=== PATIENT | female | born 1960 | race Caucasian/White ===

== ENCOUNTER → 2017-09-21 | Outpatient (CLI) | payer OTHER ==
--- NOTE | 2017-09-22 09:22 | KCIC ---
DATE: 09/21/2017 EXAM: MAMMO RANDY SCREENING BILATERAL HISTORY: Routine screening COMPARISON: 11/10/2015 This study was interpreted with the benefit of Computerized Aided Detection (CAD). The breast parenchyma is heterogeneously dense, which could reduce sensitivity of mammography. Breast parenchyma level C. FINDINGS: 2-D and 3-D tomosynthesis imaging was performed in CC and MLO projections. The fibroglandular tissues are quite heterogeneous. No new or enlarging breast densities are seen. There are numerous microcalcifications in both breasts. The most prominent grouping lies in the lateral aspect of the right breast. These calcifications have become more coarse. The overall pattern of microcalcification both breasts suggests a benign etiology. IMPRESSION: Stable mammograms without evidence of malignancy. BI-RADS CATEGORY: 2 BENIGN FINDING(S) RECOMMENDED FOLLOW-UP: 12M 12 MONTH FOLLOW-UP PQRS compliance statement: Patient information was entered into a reminder system with a target due date for the next mammogram. Mammography is a sensitive method for finding small breast cancers, but it does not detect them all and is not a substitute for careful clinical examination. A negative mammogram does not negate a clinically suspicious finding and should not result in delay in biopsying a clinically suspicious abnormality. "Our facility is accredited by the [employer] Mammography [employer]."
== END | disposition home or self-care (01) ==
LOC: KCIC MAMMO 14:48
PROVIDERS: ATTEND Internal Medicine
DX: Z12.31 Encounter for screening mammogram for malignant neoplasm of breast (principal)
CPT/HCPCS: 77063; G0202; 77067

== ENCOUNTER → 2017-11-16 | Outpatient (CLI) | payer OTHER ==
[2017-11-16 07:50] LABS: ADD MAN DIFF? NO
[2017-11-16 07:55] LABS: BASO # 0.1 x10^3/uL (0.0-0.2); BASO % 1 % (0-3); EOS # 0.1 x10^3/uL (0.0-0.7); EOS % 1 % (0-3); HEMOGLOBIN 12.9 g/dL (12.0-15.5); LYMPH % 32 % (24-48); MEAN CORPUSCULAR HEMOGLOBIN 31 pg (25-35); MEAN CORPUSCULAR HGB CONC 33 g/dL (31-37); MEAN CORPUSCULAR VOLUME 93 fL (79-100); MONO # 0.5 x10^3/uL (0.0-1.1); MONO % 5 % (0-9); NEUT # 5.7 x10^3uL (1.8-7.7); NEUT % 61 % (31-73); PLATELET COUNT 334 x10^3/uL (140-400); RED CELL DISTRIBUTION WIDTH 12.4 % (11.5-14.5); WHITE BLOOD COUNT 9.4 x10^3/uL (4.0-11.0)
[2017-11-16 08:22] LABS: THYROID STIM HORMONE (TSH) 3.927 uIU/mL (0.358-3.74)
[2017-11-16 09:29] LABS: ALBUMIN 3.6 g/dL (3.4-5.0); ALBUMIN/GLOBULIN RATIO 0.9 (1.0-1.7); ALK PHOS 55 U/L (46-116); ALT (SGPT) 34 U/L (14-59); ANION GAP 10 (6-14); AST (SGOT) 24 U/L (15-37); BLOOD UREA NITROGEN 28 mg/dL (7-20); BUN/CREATININE RATIO 28 (6-20); CALCIUM 8.9 mg/dL (8.5-10.1); CARBON DIOXIDE 27 mmol/L (21-32); CHLORIDE 101 mmol/L (98-107); CHOLESTEROL 219 mg/dL (0-200); FERRITIN 105 ng/mL (8-252); GFR 57.1; GLUCOSE 147 mg/dL (70-99); HDLC 57 mg/dL (40-60); LDLC 130 mg/dL (0-100); MAGNESIUM 2.1 mg/dL (1.8-2.4); NON-HDL CHOLESTEROL 162 mg/dL (0-129); POTASSIUM 4.3 mmol/L (3.5-5.1); SODIUM 138 mmol/L (136-145); TOTAL BILIRUBIN 0.3 mg/dL (0.2-1.0); TOTAL PROTEIN 7.5 g/dL (6.4-8.2); TRIGLYCERIDES 161 mg/dL (0-150); VLDLC 32 mg/dL (0-40)
[2017-11-16 09:33] LABS: CHOLESTEROL/HDL RATIO 3.8
[2017-11-16 22:12] LABS: HEMOGLOBIN A1C 7.9 % (4.8-5.6)
== END | disposition home or self-care (01) ==
LOC: OPS 07:38
DX: I10 Essential (primary) hypertension (principal); E10.8 Type 1 diabetes mellitus with unspecified complications
CPT/HCPCS: 36415; 80053; 80061; 82728; 83036; 83735; 84443; 85025

== ENCOUNTER → 2018-02-23 | Outpatient (CLI) | payer OTHER ==
[2018-02-23 10:10] LABS: THYROID STIM HORMONE (TSH) 1.985 uIU/mL (0.358-3.74)
== END | disposition home or self-care (01) ==
LOC: LAB 08:46
DX: E03.9 Hypothyroidism, unspecified (principal)
CPT/HCPCS: 36415; 84443

== ENCOUNTER → 2018-08-03 | Outpatient (CLI) | payer OTHER ==
--- NOTE | 2018-08-03 18:04 | KCIC ---
PA and lateral chest radiographs 07/26/2018 CLINICAL HISTORY: Chronic cough. PA and lateral digital radiographs of chest were obtained. No previous studies are available for comparison. The cardiac and mediastinal silhouettes are within normal limits in size and configuration. No acute pulmonary infiltrate is seen. No pleural effusion or pneumothorax is noted. Mild degenerative changes are seen involving the thoracic spine. IMPRESSION: No acute abnormality is seen. Electronically signed by: David Russo MD (08/03/2018 6:01 PM) [facility]
== END | disposition home or self-care (01) ==
LOC: KCIC 15:23
PROVIDERS: ATTEND Internal Medicine
DX: R05 Cough (principal); M47.894 Other spondylosis, thoracic region; E55.9 Vitamin D deficiency, unspecified; I10 Essential (primary) hypertension; E78.5 Hyperlipidemia, unspecified; E78.00 Pure hypercholesterolemia, unspecified; E03.9 Hypothyroidism, unspecified
CPT/HCPCS: 71046

== ENCOUNTER → 2018-10-05 | Outpatient (CLI) | payer OTHER ==
--- NOTE | 2018-10-05 17:16 | KCIC ---
Bilateral digital screening mammograms with 3-D tomosynthesis: Reason for examination: Routine screening. Comparison is made to previous studies dated 09/21/2017 and 11/10/2015. Bilateral mammograms in CC and oblique projections were obtained with 2-D imaging and 3-D tomosynthesis imaging on a Siemens Inspiration unit and reviewed on the workstation. Interpretation was made with the benefit of CAD. The skin and nipples show no abnormalities. No abnormal axillary lymph nodes are seen. The breast parenchyma is heterogeneously dense. (Breast density: Category C.) There appears be an area of nodular architectural distortion in the 9:00 B position of the left breast. Further evaluation with ultrasound is recommended. There are no other dominant masses, suspicious calcifications or architectural distortion. Benign calcifications are present. Impression: Nodular architectural distortion at the 9:00 B position of the left breast. Recommend further evaluation with ultrasound. Your patient's mammogram demonstrates that she has dense breast tissue (breast density category C or D), which could hide abnormalities, and if she has other risk factors for breast cancer that have been identified, she might benefit from supplemental screening tests that may be suggested by you as her ordering physician. Dense breast tissue, in and of itself, is a relatively common condition. Therefore, this information is not provided to cause undue concern, but rather to raise your awareness and to promote discussion with your patient regarding the presence of other risk factors, in addition to dense breast tissue. Your patient's mammography results will be sent to her. BI-RAD Category 0: Incomplete. Needs additional imaging evaluation. "Our facility is accredited by the [employer] Mammography Program." This patient's information has been entered into a reminder system for the patient to be notified with the results of her examination and a target date for the next mammogram. Electronically signed by: Angela Mesa MD (10/05/2018 5:12 PM) [id number]
== END | disposition home or self-care (01) ==
LOC: KCIC MAMMO 15:44
PROVIDERS: ATTEND Internal Medicine
DX: Z12.31 Encounter for screening mammogram for malignant neoplasm of breast (principal)
CPT/HCPCS: 77063; 77067

== ENCOUNTER → 2018-10-31 | Outpatient (CLI) | payer OTHER ==
[~2018-10-31] MED LIST: CRAN200C2 PO; DOXY100T PO; ESOM40CA PO; HYDR-2145 PO; INSU100C SQ; INSU100I30 SQ; LEVO75TA5 PO; LOSA1TAB19 PO; MULT1TAB52 PO; NORE-68 PO; OXYC1TAB15 PO; PRAM0.255 PO; SIMV40TA3 PO; SODI473S25 MC; ZOLP5TAB PO
--- NOTE | 2018-11-02 16:09 | PATHOLOGY ---
[facility] Accession Number: [id number] . 01 Material submitted: . LEFT BREAST . 01 Clinical history: . Left breast mass . 02 Diagnosis: Breast tissue, left breast mass needle biopsies: - INVASIVE DUCTAL CARCINOMA, HISTOLOGIC GRADE 1. SEE COMMENT. (JPM:aga; 11/01/2018) QMS/11/02/2018 . 02 Comment: Sections of the left breast mass needle biopsy reveal tubular structures which haphazardly infiltrate a desmoplastic stroma. The tubular structures are lined by epithelial cells showing modest nuclear pleomorphism and no significant mitotic activity. Immunoperoxidase stains for myoepithelial cells are obtained on blocks A1 and A3 and yield the following results: . P63 (A1): Absence of myoepithelial cells within infiltrating tubular structures. Smooth muscle myosin heavy chain (A1): Absence of myoepithelial cells within infiltrating tubular structures. P63 (A3): Absence of myoepithelial cells within infiltrating tubular structures. Smooth muscle myosin heavy chain (A3): Absence of myoepithelial cells within infiltrating tubular structures. . The morphologic and immunophenotypic findings are supportive of the diagnosis of an invasive ductal carcinoma, histologic grade 1. . The case is also examined by Dr. Stewart, who concurs with the diagnosis. Breast prognostic studies will be obtained, the results of which will be reported separately. . (JPM:aga; 11/02/2018) . . Special stains performed: p63 on A1 and A3, and smooth muscle myosin heavy chain on A1 and A3. . 02 Electronically signed: . Ramin Pena MD, Pathologist NPI- [id number] . 01 Gross description: . Received in formalin labeled "Adiel Mayra, left breast," and additionally labeled on the requisition as "9:00, 5 cmfn," are multiple needle cores of yellow-burnham fibrofatty tissue measuring 1.8 x 0.6 x 0.2 cm in aggregate dimensions. The tissue is submitted in its entirety in cassette A1 through A3. The cold ischemic time is 5 minutes. The total formalin fixation time is approximately 12 hours. (TSD; 10/31/2018) TOB/TOB . 02 Pathologist provided ICD-10: C50.912 . 02 CPT . 259035, A07613, [id number] Specimen Comment: A courtesy copy of this report has been sent to Specimen Comment: [phone], . Specimen Comment: Report sent to and Performed at: 01 [facility] [address], [place] [id number] MD Justin Porras MD Phone: [phone] Performed at: 02 [facility] [address] [place], [place] [id number] MD Ramin Pena MD Phone: [phone]
--- NOTE | 2018-11-14 10:20 | RAD ---
Ultrasound-guided left breast biopsy, 10/31/2018: History: Suspicious breast nodule Previous studies demonstrated a suspicious hypoechoic structure at the 9:00 location in the left breast. Under local anesthesia, aseptic conditions and sonographic guidance the [employer] biopsy instrument was passed into this lesion via a medial approach. Multiple 12-gauge vacuum-assisted core samples were obtained. A biopsy marker was then deposited at the biopsy site. The biopsy instrument was then removed and hemostasis obtained. Two-view postprocedural digital mammograms were then performed to document position of the biopsy marker. The patient tolerated the procedure well and left the department in good condition. The subsequent pathology report indicated the presence of invasive ductal carcinoma. This is considered to be concordant finding.
== END | disposition home or self-care (01) ==
LOC: US 10:07
PROVIDERS: ATTEND Internal Medicine
DX: C50.912 Malignant neoplasm of unspecified site of left female breast (principal)
CPT/HCPCS: 19083; 77065; 88305; 88341; 88342; 88361; C1713; 19081; 76942

== ENCOUNTER → 2018-11-07 | Outpatient (CLI) | payer OTHER ==
[2018-11-07 12:31] LABS: BASO % 1 % (0-3); EOS # 0.1 x10^3/uL (0.0-0.7); EOS % 1 % (0-3); HEMATOCRIT 38.3 % (36.0-47.0); LYMPH # 2.5 x10^3/uL (1.0-4.8); LYMPH % 26 % (24-48); MEAN CORPUSCULAR HEMOGLOBIN 31 pg (25-35); MEAN CORPUSCULAR HGB CONC 34 g/dL (31-37); MEAN CORPUSCULAR VOLUME 91 fL (79-100); MONO # 0.4 x10^3/uL (0.0-1.1); MONO % 4 % (0-9); NEUT # 6.6 x10^3uL (1.8-7.7); NEUT % 69 % (31-73); PLATELET COUNT 362 x10^3/uL (140-400); RED BLOOD COUNT 4.19 x10^6/uL (3.50-5.40); RED CELL DISTRIBUTION WIDTH 12.6 % (11.5-14.5); WHITE BLOOD COUNT 9.6 x10^3/uL (4.0-11.0)
[2018-11-07 12:56] LABS: ALBUMIN 3.8 g/dL (3.4-5.0); CALCIUM 9.6 mg/dL (8.5-10.1); CREATININE 1.1 mg/dL (0.6-1.0); POTASSIUM 3.9 mmol/L (3.5-5.1); TOTAL BILIRUBIN 0.3 mg/dL (0.2-1.0); TOTAL PROTEIN 7.6 g/dL (6.4-8.2)
== END | disposition home or self-care (01) ==
LOC: ONC 09:20
PROVIDERS: ATTEND Internal Medicine Hematology & Oncology
DX: C50.812 Malignant neoplasm of overlapping sites of left female breast (principal)
CPT/HCPCS: 36415; 80053; 85025; 86300

== ENCOUNTER 2018-11-21 08:10 | Inpatient (IN) | payer OTHER ==
[~2018-11-21] VITALS: Ht 167.6 cm; Wt 72.0 kg
[~2018-11-21 08:10] MED LIST changes: -DOXY100T PO; +HYDROmorphone 2 MG/ML VIAL IV PRN; +IV RINGERS,LACTATED 1000ML 1,000 ML IV SCH; +LIDOCAINE 1% PF 2 ML VIAL. ID PRN; +MORPHINE SULFATE 4 MG/ML VIAL. IV PRN; +ONDANSETRON PF 4 MG/2 ML VIAL. IV PRN; -OXYC1TAB15 PO; +PROCHLORPERAZINE 10 MG/2 ML VIAL. IV PRN; -SODI473S25 MC; -ZOLP5TAB PO; +fentaNYL PF VIAL 100 MCG/2 ML VIAL IV PRN
[2018-11-21] MEDS ORDERED: ONDANSETRON PF 4 MG/2 ML VIAL. ONE (08:35)
[2018-11-21] MEDS ORDERED: DEXAMETHASONE SOD PHOS 20 MG/5 ML VIAL. ONE (08:35)
[2018-11-21] MEDS ORDERED: MIDAZOLAM HCL/PF 2 MG/2 ML VIAL. ONE (08:35)
[2018-11-21] MEDS ORDERED: LIDOCAINE 2% PF 5 ML VIAL. ONE (08:35)
[2018-11-21] MEDS ORDERED: PROPOFOL 20 ML IV ONE ×2 (08:35→13:05)
[2018-11-21] MEDS ORDERED: fentaNYL PF VIAL 100 MCG/2 ML VIAL ONE (08:36)
[2018-11-21] MEDS ORDERED: LIDOCAINE WITH 8.4% SOD BICARB 3 ML DISP.SYRIN. INJ ONE ×2 (09:00→09:15)
--- NOTE | 2018-11-21 10:02 | RAD ---
Left breast needle localization, 11/21/2018: History: Breast cancer We targeted the breast biopsy marker at the 9:00 location in the medial aspect of the left breast. Under local anesthesia, aseptic conditions and mammographic guidance the Kopan's needle with modified retention wire was passed into this region via a medial approach. The final images show that the breast biopsy marker lies directly anterior to the midportion of the thickened part of the retention wire approximately 4.4 cm deep to the skin surface. The biopsied lesion is centered along the anterior aspect of the biopsy marker. The patient tolerated the procedure well and was sent to surgery in good condition.
[2018-11-21] MEDS ORDERED: BUPIVAC MPF-EPI 0.5%-1:200000 30 ML VIAL. ONE (10:41)
[2018-11-21] MEDS ORDERED: METHYLENE BLUE 1% 10 ML VIAL. ONE (10:41)
--- NOTE | 2018-11-21 11:10 | RAD ---
Radionuclide left breast sentinel node localization, 11/21/2018: HISTORY: Left breast cancer Under aseptic conditions and utilizing ethyl chloride spray for topical anesthesia a total of 0.75 mCi of filtered technetium 99m sulfur colloid mixed with 0.5 cc of 1 percent buffered lidocaine was injected subdermally in the left periareolar region in 4 divided doses. No imaging was performed. The patient was sent to surgery in good condition. Electronically signed by: El Perez MD (11/21/2018 11:06 AM) [facility]
[2018-11-21] MEDS ORDERED: ISOFLURANE 61 TO 120 MINUTES. IH ONE (11:11)
[2018-11-21] MEDS ORDERED: KETOROLAC 30 MG/ML INJ FOR OR. INJ ONE (11:11)
[2018-11-21] MEDS ORDERED: ePHEDrine PF IN SALINE 50 MG/5 ML DISP.SYRIN IV ONE (11:19)
--- NOTE | 2018-11-21 12:11 | RAD ---
Left specimen mammogram #1, 11/21/2018: History: Left breast cancer A digital mammogram of a surgical specimen from the left left breast was obtained. It contains the modified Kopans retention wire. The breast biopsy marker is not evident within the specimen. There are a few faint scattered microcalcifications.
--- NOTE | 2018-11-21 12:44 | RAD ---
Left breast specimen mammogram #2, 11/21/2018: History: Breast cancer The breast biopsy marker is not evident within the specimen.
--- NOTE | 2018-11-21 13:05 | RAD ---
Left specimen mammogram #3, 11/21/2018: A digital mammogram of the surgical specimen does not demonstrate a breast biopsy marker. There is a tiny smooth nodule evident in the specimen at the D/7 level in the specimen contained. Left specimen mammogram #4, 11/21/2018: A digital mammogram of this surgical specimen does not demonstrate a breast biopsy marker.
--- NOTE | 2018-11-21 13:20 | RAD ---
Left breast specimen #5, 11/21/2018: A single digital image of the specimen does not demonstrate a breast biopsy marker in the specimen. A few scattered rounded microcalcifications are present.
--- NOTE | 2018-11-21 13:20 | PDOC ---
BRIEF OPERATIVE NOTE Date: Nov 21, 2018 Pre-Op Diagnosis invasive carcinoma left breast Post-Op Diagnosis same Procedure Performed SLN biopsy times three excision upper inner quadrant, left breast after localization [place] Anesthesia Type: General Blood Loss 25cc IV Fluid 1500cc Specimens Obtained SLN times three left breast mass 10:00 additional breast tissue medially, superiorly and inferiorly Findings negative LNs FADI ROBERTSON MD Nov 21, 2018 13:20
[2018-11-21] MEDS ORDERED: HYDROmorphone 2 MG/ML VIAL IV PRN (13:30)
[2018-11-21] MEDS ORDERED: ONDANSETRON PF 4 MG/2 ML VIAL. IV PRN (13:30)
[2018-11-21] MEDS ORDERED: diphenhydrAMINE HCL 25 MG CAPSULE PO PRN (13:30)
[2018-11-21] MEDS ORDERED: oxyCODONE/APAP 5/325 1 TAB TABLET PO PRN (13:30)
[2018-11-21] MEDS ORDERED: 0.9 % SODIUM CHLORIDE 10 ML DISP.SYRIN. IV PRN (13:30)
[2018-11-21] MEDS ORDERED: INSULIN LISPRO 100 UNIT/ML 3ML VIAL for OP,RR ONLY. SQ ONE (13:45)
--- NOTE | 2018-11-21 14:20 | NUR ---
This patient arrived by bed, freq vitals were initiated, family at bedside, IVF going, call light within reach of patient. Dressing is CDI, and patient is drowsy at this time, this nurse will continue to monitor.
[2018-11-21 15:00] VITALS: BP_SYST 150; BP_DIAS 50; BP_DIAS 52
[2018-11-21 16:00] VITALS: BP 150/48
[2018-11-21 16:30] VITALS: BP 135/49
[2018-11-21] MEDS: INSULIN LISPRO 300 UNITS/3 ML INSULN.PEN. SQ SCH (17:20)
[2018-11-21] MEDS: oxyCODONE/APAP 5/325 1 TAB TABLET PO PRN ×2 (17:27→21:57)
[2018-11-21] MEDS: POTASSIUM CL 20MEQ-0.45% NACL 1,000 ML IV SCH (17:29)
--- NOTE | 2018-11-21 17:30 | NUR ---
This nurse discussed with patient how much SSI the patient would take with current BS, patient stated, "5 units, not 8 units." This nurse will continue to monitor.
--- NOTE | 2018-11-21 17:45 | NUR ---
This nurse paged MD for orders for muscle spasms, orders received. This nurse discussed taking PO pain medications, and using IV for breakthrough only as needed, started with 1 Percocet, and can increase to 2 if needed. Discussed potentially discharging tomorrow if ok with MD. SAMANTHA drain education started, will need more education at discharge if leaving with drain. No output out of drain at this time. Patient able to ambulate to bathroom with SBA, and stated, "my urine is blue." This nurse explained the reasoning behind the coloring of urine.
[2018-11-21] MEDS ORDERED: LORazepam 0.5 MG TABLET PO PRN ×2 (18:00→18:15)
[2018-11-21 19:00] VITALS: BP 129/46
[2018-11-21] MEDS ORDERED: PRAMIPEXOLE 0.25 MG TABLET. PO SCH (21:00)
[2018-11-21] MEDS ORDERED: DEXTROSE 50% 25 GM / 50ML DISP.SYRIN. IV PRN (21:15)
[2018-11-21] MEDS ORDERED: INSULIN LISPRO 300 UNITS/3 ML INSULN.PEN. SQ ONE (21:30)
[2018-11-21] MEDS ORDERED: INSULIN GLARGINE 300 UNITS/3 ML INSULN.PEN. SQ ONE (21:30)
[2018-11-21] MEDS: DOCUSATE SODIUM 100 MG CAPSULE. PO SCH (21:55)
--- NOTE | 2018-11-21 22:00 | NUR ---
Dr. Romero pagecheryle for blood glucose of 355. Orders to consult hospitalist rcvd, Dr. Yoly espinoza, consult placed and insulin orders rcvd, will continue to monitor.
[2018-11-21 23:00] VITALS: BP 129/54
--- NOTE | 2018-11-21 23:00 | NUR ---
Per pt's request only 10 units of humalog administered this evening. Pt resting in bed at this time, call light within reach and will continue to monitor.
[2018-11-22 03:00] VITALS: BP 122/51
[2018-11-22] MEDS: oxyCODONE/APAP 5/325 1 TAB TABLET PO PRN (03:45)
[2018-11-22] MEDS: POTASSIUM CL 20MEQ-0.45% NACL 1,000 ML IV SCH (06:36)
[2018-11-22 07:00] VITALS: BP 133/50
[2018-11-22] MEDS ORDERED: LEVOTHYROXINE 75 MCG TABLET PO SCH (07:30)
[2018-11-22] MEDS ORDERED: PANTOPRAZOLE 40 MG TABLET.DR. PO SCH (07:30)
[2018-11-22] MEDS: DOCUSATE SODIUM 100 MG CAPSULE. PO SCH (08:57)
[2018-11-22] MEDS ORDERED: ENOXAPARIN 40 MG/0.4 ML SYRINGE. SQ SCH (09:00)
[2018-11-22] MEDS ORDERED: NON FORMULARY ITEM (Losartan/Hydrochlorothiazide (Losartan-Hctz 50-12.5 Mg Tab) 1 EACH) PO SCH (09:00)
[2018-11-22] MEDS ORDERED: hydroCHLOROthiazide 25 MG TABLET PO SCH (09:00)
[2018-11-22] MEDS ORDERED: LOSARTAN POTASSIUM 50 MG TABLET. PO SCH (09:00)
[2018-11-22] MEDS ORDERED: INSULIN GLARGINE 300 UNITS/3 ML INSULN.PEN. SQ SCH (09:00)
[2018-11-22] MEDS: INSULIN LISPRO 300 UNITS/3 ML INSULN.PEN. SQ SCH ×4 (09:11→12:40)
--- NOTE | 2018-11-22 09:43 | PDOC1 ---
History and Physical Date of Admission Date of Admission DATE: 11/22/18 TIME: 09:40 Identification/Chief Complaint Chief Complaint here for breast surgery Past Medical History Endocrine: Diabetes Past Surgical History Past Surgical History: No pertinent history Family History Family History: Cancer Family History: Grandparents Social History Smoke: No ALCOHOL: none Drugs: None Current Medications Current Medications Current Medications Ondansetron HCl (Zofran) 4 mg PRN Q6HRS PRN IV NAUSEA/VOMITING; Start 11/21/18 at 07:00; Stop 11/22/18 at 06:59; Status DC Fentanyl Citrate (Fentanyl 2ml Vial) 25 mcg PRN Q5MIN PRN IV MILD PAIN Last administered on 11/21/18at 13:58; Start 11/21/18 at 07:00; Stop 11/22/18 at 06:59 ; Status DC Fentanyl Citrate (Fentanyl 2ml Vial) 50 mcg PRN Q5MIN PRN IV MODERATE TO SEVERE PAIN Last administered on 11/21/18at 14:15; Start 11/21/18 at 07:00; Stop 11/22/18 at 06:59; Status DC Morphine Sulfate (Morphine Sulfate) 1 mg PRN Q10MIN PRN IV SEVERE PAIN; Start 11/21/18 at 07:00; Stop 11/22/18 at 06:59; Status DC Ringer's Solution 1,000 ml @ 30 mls/hr Q24H IV Last administered on 11/21/18at 09:02; Start 11/21/18 at 07:00; Stop 11/21/18 at 18:59; Status DC Lidocaine HCl (Xylocaine-Mpf 1% 2ml Vial) 2 ml PRN 1X PRN ID IV START; Start at 07:00; Stop 11/22/18 at 06:59; Status DC Hydromorphone HCl (Dilaudid) 0.5 mg PRN Q10MIN PRN IV SEV PAIN, Second choice; Start 11/21/18 at 07:00; Stop 11/22/18 at 06:59; Status DC Prochlorperazine Edisylate (Compazine) 5 mg PACU PRN PRN IV NAUSEA, MRX1; Start 11/21/18 at 07:00; Stop 11/22/18 at 06:59; Status DC Cefazolin Sodium/ Dextrose 50 ml @ 100 mls/hr 1X PREOP PRN IV PRIOR TO PROCEDURE Last administered on 11/21/18at 10:55; Start 11/21/18 at 06:00; Stop at 18:00; Status DC Lidocaine/Sodium Bicarbonate (Buffered Lidocaine 1%) 3 ml 1X ONCE INJ Last administered on 11/21/18at 09:43; Start 11/21/18 at 09:00; Stop 11/21/18 at 09:01 ; Status DC Propofol 20 ml @ As Directed STK-MED ONCE IV ; Start 11/21/18 at 08:35; Stop at 08:37; Status DC Lidocaine HCl (Lidocaine Pf 2% Vial) 5 ml STK-MED ONCE .ROUTE ; Start 11/21/18 at 08:35; Stop 11/21/18 at 08:37; Status DC Dexamethasone Sodium Phosphate (Decadron) 20 mg STK-MED ONCE .ROUTE ; Start at 08:35; Stop 11/21/18 at 08:37; Status DC Ondansetron HCl (Zofran) 4 mg STK-MED ONCE .ROUTE ; Start 11/21/18 at 08:35; Stop 11/21/18 at 08:37; Status DC Midazolam HCl (Versed) 2 mg STK-MED ONCE .ROUTE ; Start 11/21/18 at 08:35; Stop 11/21/18 at 08:37; Status DC Fentanyl Citrate (Fentanyl 2ml Vial) 100 mcg STK-MED ONCE .ROUTE ; Start at 08:36; Stop 11/21/18 at 08:38; Status DC Lidocaine/Sodium Bicarbonate (Buffered Lidocaine 1%) 3 ml 1X ONCE INJ Last administered on 11/21/18at 10:23; Start 11/21/18 at 09:15; Stop 11/21/18 at 09:16 ; Status DC Bupivacaine HCl/ Epinephrine Bitart (Sensorcain-Mpf Epi 0.5%-[id number]) 30 ml STK -MED ONCE .ROUTE Last administered on 11/21/18at 11:15; Start 11/21/18 at 10:41 ; Stop 11/21/18 at 10:43; Status DC Methylene Blue (Methylene Blue) 1 ml STK-MED ONCE .ROUTE Last administered on at 11:15; Start 11/21/18 at 10:41; Stop 11/21/18 at 10:43; Status DC Ketorolac Tromethamine (Toradol For Or Only) 30 mg STK-MED ONCE INJ ; Start at 11:11; Stop 11/21/18 at 11:13; Status DC Isoflurane (Isoflurane) 60 ml STK-MED ONCE IH ; Start 11/21/18 at 11:11; Stop at 11:13; Status DC Ephedrine Sulfate (ePHEDrine PF IN SALINE SYRINGE) 50 mg STK-MED ONCE IV ; Start 11/21/18 at 11:19; Stop 11/21/18 at 11:21; Status DC Propofol 20 ml @ As Directed STK-MED ONCE IV ; Start 11/21/18 at 13:05; Stop at 13:07; Status DC Hydrochlorothiazide (Hydrodiuril) 25 mg DAILY PO Last administered on at 08:56; Start 11/22/18 at 09:00 Levothyroxine Sodium (Synthroid) 75 mcg DAILYAC PO Last administered on at 06:35; Start 11/22/18 at 07:30 Pantoprazole Sodium (Protonix) 40 mg DAILYAC PO Last administered on 11/22/18at 06:35; Start 11/22/18 at 07:30 Insulin Glargine (Lantus) 26 units DAILY SQ Last administered on 11/22/18at 09: 09; Start 11/22/18 at 09:00 Insulin Human Lispro (HumaLOG) 8 units TIDWMEALS SQ Last administered on at 09:11; Start 11/21/18 at 17:00 Non-Formulary Medication (Losartan/ Hydrochlorothiazide (Losartan-Hctz 50-12.5 Mg Tab)) 1 each DAILY PO ; Start 11/22/18 at 09:00; Status UNV Pramipexole Dihydrochloride (miraPEX) 0.25 mg QHS PO Last administered on at 21:55; Start 11/21/18 at 21:00 Diphenhydramine HCl (Benadryl) 25 mg PRN Q6HRS PRN PO ITCHING; Start 11/21/18 at 13:30 Enoxaparin Sodium (Lovenox 40mg Syringe) 40 mg Q24H SQ Last administered on at 08:58; Start 11/22/18 at 09:00 Sodium Chloride (Normal Saline Flush) 3 ml QSHIFT PRN IV AFTER MEDS AND BLOOD DRAWS; Start 11/21/18 at 13:30 Potassium Chloride/Sodium Chloride 1,000 ml @ 75 mls/hr [id number] IV Last administered on 11/22/18at 06:36; Start 11/21/18 at 14:30 Oxycodone/ Acetaminophen (Percocet 5/325) 1 tab PRN Q4HRS PRN PO MILD PAIN, 1ST CHOICE Last administered on 11/22/18at 03:45; Start 11/21/18 at 13:30 Oxycodone/ Acetaminophen (Percocet 5/325) 2 tab PRN Q4HRS PRN PO MODERATE PAIN , SEVERE PAIN; Start 11/21/18 at 13:30 Hydromorphone HCl (Dilaudid) 1 mg PRN Q3HRS PRN IV PAIN Last administered on at 14:58; Start 11/21/18 at 13:30 Docusate Sodium (Colace) 100 mg BID PO Last administered on 11/22/18at 08:57; Start 11/21/18 at 21:00 Ondansetron HCl (Zofran) 4 mg PRN Q6HRS PRN IV NAUESA, 1ST CHOICE; Start at 13:30 Insulin Human Lispro (HumaLOG VIAL) 3 unit 1X ONCE SQ Last administered on at 13:41; Start 11/21/18 at 13:45; Stop 11/21/18 at 13:56; Status DC Losartan Potassium (Cozaar) 50 mg DAILY PO Last administered on 11/22/18at 08:57 ; Start 11/22/18 at 09:00 Lorazepam (Ativan) 0.5 mg PRN Q8HRS PRN PO ANXIETY / AGITATION; Start 11/21/18 at 18:00; Stop 11/21/18 at 18:02; Status DC Lorazepam (Ativan) 0.5 mg PRN Q6HRS PRN PO ANXIETY / AGITATION Last administered on 11/21/18at 18:25; Start 11/21/18 at 18:15 Insulin Glargine (Lantus) 20 units 1X ONCE SQ Last administered on 11/21/18at 22:00; Start 11/21/18 at 21:30; Stop 11/21/18 at 21:31; Status DC Insulin Human Lispro (HumaLOG) 15 units 1X ONCE SQ Last administered on at 21:59; Start 11/21/18 at 21:30; Stop 11/21/18 at 21:31; Status DC Insulin Human Lispro (HumaLOG) 0-9 UNITS TIDWMEALS SQ Last administered on 11/22at 09:13; Start 11/22/18 at 08:00 Dextrose (Dextrose 50%-Water Syringe) 12.5 gm PRN Q15MIN PRN IV SEE COMMENTS; Start 11/21/18 at 21:15 Active Scripts Active Reported Microgestin Fe 1.5-30 Tab (Noreth A-Et Estra/Fe Fumarate) 1 Each Tablet 1 Each PO QODAY Multivitamins (Multivitamin) 1 Each Tablet 1 Each PO DAILY Cranberry (Cranberry Extract) 200 Mg Capsule 200 Mg PO DAILY Hydrochlorothiazide Tablet (Hydrochlorothiazide) 25 Mg Tablet 25 Mg PO DAILY Simvastatin 40 Mg Tablet 40 Mg PO HS Humalog (Insulin Lispro) 100 Unit/1 Ml Cartridge 8 Unit SQ TIDAC Levothyroxine Sodium 75 Mcg Tablet 75 Mcg PO DAILYAC Mirapex (Pramipexole Di-Hcl) 0.25 Mg Tablet 0.25 Mg PO HS Tresiba Flextouch U-100 (Insulin Degludec) 100 Unit/1 Ml Insuln.pen 26 Unit SQ AM Losartan-Hctz 50-12.5 Mg Tab (Losartan/Hydrochlorothiazide) 1 Each Tablet 1 Each PO DAILY Nexium Capsule (Esomeprazole Magnesium) 40 Mg Capsule.dr 40 Mg PO DAILYAC Allergies Allergies: Coded Allergies: No Known Drug Allergies (Unverified , 11/19/18) ROS Review of System 14 pt ros otherwise neg General: No: Chills, Night Sweats, Fatigue, Malaise, Appetite, Other PSYCHOLOGICAL ROS: YES: Anxiety; No: Behavioral Disorder, Concentration difficultie, Decreased libido, Depression, Disorientation, Hallucinations, Hostility, Irritablity, Memory difficulties, Mood Swings, Obsessive thoughts, Physical abuse, Sexual abuse, Sleep disturbances, Suicidal ideation, Other Eyes: Yes Blurry vision; No Decreased vision, No Double vision, No Dry eyes, No Excessive tearing, No Eye Pain, No Itchy Eyes, No Loss of vision, No Photophobia, No Scotomata, No Uses contacts, No Uses glasses, No Other HEENT: No: Heacaches, Visual Changes, Hearing change, Nasal congestion, Nasal discharge, Oral lesions, Sinus pain, Sore Throat, Epistaxis, Sneezing, Snoring, Tinnitus, Vertigo, Vocal changes, Other ALLERGY AND IMMUNOLOGY: No: Hives, Insect Bite Sensitivity, Itchy/Watery Eyes, Nasal Congestion, Post Nasal Drip, Seasonal Allergies, Other Hematological and Lymphatic: No: Bleeding Problems, Blood Clots, Blood Transfusions, Brusing, Night Sweats, Pallor, Swollen Lymph Nodes, Other ENDOCRINE: YES: Breast Changes; No: Galactorrhea, Hair Pattern Changes, Hot Flashes, Malaise/lethargy, Mood Swings, Palpitations, Polydipsia/polyuria, Skin Changes, Temperature Intolerance , Unexpected Weight Changes, Other Breast: No New/Changing Breast Lumps, No Nipple changes, No Nipple discharge, No Other Respiratory: No: Cough, Hemoptysis, Orthopnea, Pleuritic Pain, Shortness of breath, SOB with excertion, Sputum Changes, Stridor, Tachypnea, Wheezing, Other Cardiovascular: No Chest Pain, No Palpitations, No Orthopnea, No Paroxysmal Noc. Dyspnea, No Edema, No Lt Headedness, No Other Gastrointestinal: No Nausea, No Vomiting, No Abdominal Pain, No Diarrhea, No Constipation, No Melena, No Hematochezia, No Other Genitourinary: No Dysuria, No Frequency, No Incontinence, No Hematuria, No Retention, No Discharge, No Urgency, No Pain, No Flank Pain, No Other, No , No , No , No , No , No , No Musculoskeletal: No Gait Disturbance, No Joint Pain, No Joint Stiffness, No Joint Swelling, No Muscle Pain, No Muscular Weakness, No Pain In:, No Swelling In:, No Other Neurological: No Behavorial Changes, No Bowel/Bladder ControlChng, No Confusion , No Dizziness, No Gait Disturbance, No Headaches, No Impaired Coord/balance, No Memory Loss, No Numbness/Tingling, No Seizures, No Speech Problems, No Tremors, No Visual Changes, No Weakness, No Other Skin: No Dry Skin, No Eczema, No Hair Changes, No Lumps, No Mole Changes, No Mottling, No Nail Changes, No Pruritus, No Rash, No Skin Lesion Changes, No Other, No Acne Physical Exam General: Alert, Oriented X3, Cooperative, No acute distress HEENT: Atraumatic, PERRLA, EOMI, Mucous membr. moist/pink Lungs: Clear to auscultation, Normal air movement Heart: S1S2, RRR, no thrills, no rubs, no gallops, no murmurs, murmurs Cardiovascular: S1 Breasts: Not examined Abdomen: Normal bowel sounds, Soft, No hepatosplenomegaly Rectal Exam: not examined PELVIC: Examination not indicated Extremities: No clubbing, No cyanosis, No edema Skin: No rashes Neuro: Normal speech, Strength at 5/5 X4 ext, Sensation intact, Cranial nerves 3-12 NL Psych/Mental Status: Mental status NL, Mood NL Vitals Vitals Vital Signs Date Time Temp Pulse Resp B/P (MAP) Pulse Ox O2 Delivery O2 Flow Rate FiO2 11/22/18 08:57 72 133/50 11/22/18 07:00 97.8 16 96 Room Air 97.8 11/21/18 13:15 10 Labs Labs Diagnosis: Breast tissue, left breast mass needle biopsies: - INVASIVE DUCTAL CARCINOMA, HISTOLOGIC GRADE 1. SEE COMMENT. (JPM:aga; 11/01/2018) QMS/11/02/2018 . 02 Comment: Sections of the left breast mass needle biopsy reveal tubular structures which haphazardly infiltrate a desmoplastic stroma. The tubular structures are lined by epithelial cells showing modest nuclear pleomorphism and no significant mitotic activity. Immunoperoxidase stains for myoepithelial cells are obtained on blocks A1 and A3 and yield the following results: . P63 (A1): Absence of myoepithelial cells within infiltrating tubular structures. Smooth muscle myosin heavy chain (A1): Absence of myoepithelial cells within infiltrating tubular structures. P63 (A3): Absence of myoepithelial cells within infiltrating tubular structures. Smooth muscle myosin heavy chain (A3): Absence of myoepithelial cells within infiltrating tubular structures. . The morphologic and immunophenotypic findings are supportive of the diagnosis of an invasive ductal carcinoma, histologic grade 1. . The case is also examined by Dr. Stewart, who concurs with the diagnosis. Breast prognostic studies will be obtained, the results of which will be reported separately. . (JPM:aga; 11/02/2018) . . Special stains performed: p63 on A1 and A3, and smooth muscle myosin heavy chain on A1 and A3. . 02 Electronically signed: . Ramin Pena MD, Pathologist NPI- [id number] Laboratory Tests Test 11/21/18 08:44 11/21/18 13:23 11/21/18 16:50 11/21/18 20:18 Glucose (Fingerstick) 146 mg/dL (70-99) 220 mg/dL (70-99) 243 mg/dL (70-99) 355 mg/dL (70-99) Laboratory Tests Test 11/21/18 13:23 11/21/18 16:50 11/21/18 20:18 Glucose (Fingerstick) 220 mg/dL (70-99) 243 mg/dL (70-99) 355 mg/dL (70-99) VTE Prophylaxis Ordered VTE Prophylaxis Devices: Yes VTE Pharmacological Prophylaxi: Yes Assessment/Plan Assessment/Plan invasive carcinoma, left breast GERD HTN HYPERLIPIDEMIA home today, see Dr Hermosillo for drain removal soon [facility] SRINIVASAN NELA MD Nov 22, 2018 09:43
--- NOTE | 2018-11-22 09:55 | DISCH ---
DISCHARGE INSTRUCTIONS Condition on Discharge Condition on Discharge: Stable Activity After Discharge Activity Instructions for Disc: Activity as tolerated, Avoid exertion Driving Instructions after Dis: Do not drive Diet after Discharge Diet after Discharge: Diabetic No Calorie Level Wound Incision Care Wound/Incision Care: Ice to area for comfort, Keep wound/cast CDI Follow-Up Follow up with: [facility] 11/26 FADI ROBERTSON MD Nov 22, 2018 09:55
--- NOTE | 2018-11-22 10:00 | PDOC3 ---
Discharge Summary Visit Information Date of Admission: Nov 21, 2018 Date of Discharge: Nov 22, 2018 Admitting Diagnosis Comment: invasive carcinoma, left breast Final Diagnosis same Brief Hospital Course Allergies Allergies Coded Allergies Type Severity Reaction Last Updated Verified No Known Drug Allergies 11/19/18 No Vital Signs Vital Signs Date Time Temp Pulse Resp B/P (MAP) Pulse Ox O2 Delivery O2 Flow Rate FiO2 11/22/18 08:57 72 133/50 11/22/18 07:00 97.8 16 96 Room Air 97.8 11/21/18 13:15 10 Lab Results Laboratory Tests Test 11/21/18 08:44 11/21/18 13:23 11/21/18 16:50 11/21/18 20:18 Glucose (Fingerstick) 146 mg/dL (70-99) 220 mg/dL (70-99) 243 mg/dL (70-99) 355 mg/dL (70-99) Laboratory Tests Test 11/21/18 13:23 11/21/18 16:50 11/21/18 20:18 Glucose (Fingerstick) 220 mg/dL (70-99) 243 mg/dL (70-99) 355 mg/dL (70-99) Brief Hospital Course Ms. Chun is a 58 old female who presented with biopsy proven carcinoma, left breast. Underwent SLN biopsy times, three and :"lumpectomy" Discharge Information Condition at Discharge: Stable Follow Up: As Needed Disposition/Orders: D/C to Home Scheduled Cranberry Extract (Cranberry) 200 Mg Capsule, 200 MG PO DAILY for PREVENT UTI, ( Reported) Entered as Reported by: JOAN NORRIS on 11/19/181823 Last Taken: Unknown Dose on 11/20/18 Last Action: HELD on 11/21/181321 by FADI ROBERTSON Esomeprazole Magnesium (Nexium Capsule) 40 Mg Capsule.dr, 40 MG PO DAILYAC for GERD, #30 Ref 0 (Reported) Entered as Reported by: JOAN NORRIS on 11/19/181823 Last Taken: Unknown Dose on 11/20/18 Last Action: Converted on 11/21/181321 by FADI ROBERTSON Hydrochlorothiazide (Hydrochlorothiazide Tablet ) 25 Mg Tablet, 25 MG PO DAILY for DIURETIC, Ref 0 (Reported) Entered as Reported by: JOAN NORRIS on 11/19/181823 Last Taken: Unknown Dose on 11/20/18 Last Action: Continued on 11/21/181321 by FADI ROBERTSON Insulin Degludec (Tresiba Flextouch U-100) 100 Unit/1 Ml Insuln.pen, 26 UNIT SQ AM for DIABETES CONTROL, (Reported) Entered as Reported by: JOAN NORRIS on 11/19/181823 Last Taken: 6 UNITS 11/21/17 on 11/21/18 0700 Last Action: Converted on 1321 by FADI ROBERTSON Insulin Lispro (Humalog) 100 Unit/1 Ml Cartridge, 8 UNIT SQ TIDAC for SLIDING SCALE, (Reported) Entered as Reported by: JOAN NORRIS on 11/19/181823 Last Taken: Unknown Dose on 11/20/18 Last Action: Converted on 11/21/181321 by FADI ROBERTSON Levothyroxine Sodium (Levothyroxine Sodium) 75 Mcg Tablet, 75 MCG PO DAILYAC for THYROID SUPPLEMENT, #30 Ref 0 (Reported) Entered as Reported by: JOAN NORRIS on 11/19/181823 Last Taken: Unknown Dose on 11/20/18 Last Action: Continued on 11/21/181321 by FADI ROBERTSON Losartan/Hydrochlorothiazide (Losartan-Hctz 50-12.5 Mg Tab) 1 Each Tablet, 1 EACH PO DAILY for CONTROL BP, (Reported) Entered as Reported by: JOAN NORRIS on 11/19/181823 Last Taken: Unknown Dose on 11/21/18 0700 Last Action: Converted on 1321 by FADI ROBERTSON Multivitamin (Multivitamins) 1 Each Tablet, 1 EACH PO DAILY for SUPPLEMENT, ( Reported) Entered as Reported by: JOAN NORRIS on 11/19/181823 Last Taken: Unknown Dose on 11/20/18 Last Action: HELD on 11/21/181321 by FADI ROBERTSON Noreth A-Et Estra/Fe Fumarate (Microgestin Fe 1.5-30 Tab) 1 Each Tablet, 1 EACH PO QODAY for PREVENT HOT FLASHES, (Reported) Entered as Reported by: JOAN NORRIS on 11/19/181823 Last Taken: Unknown Dose on 11/20/18 Last Action: HELD on 11/21/181321 by FADI ROBERTSON Pramipexole Di-Hcl (Mirapex) 0.25 Mg Tablet, 0.25 MG PO HS for RESTLESS LEG, ( Reported) Entered as Reported by: JOAN NORRIS on 11/19/181823 Last Taken: Unknown Dose on 11/20/18 Last Action: Converted on 11/21/181321 by FADI ROBERTSON Simvastatin (Simvastatin) 40 Mg Tablet, 40 MG PO HS for FOR CHOLESTEROL, #30 Ref 0 (Reported) Entered as Reported by: JOAN NORRIS on 11/19/181823 Last Taken: Unknown Dose on 11/20/18 Last Action: HELD on 11/21/181321 by FADI ANGULO MD Nov 22, 2018 10:00
[2018-11-22 11:00] VITALS: BP 118/50
--- NOTE | 2018-11-22 12:46 | NUR ---
Patient's pre breakfast glucose was 364 mg/dl, paged at 0854, no new orders received. This nurse gave the standard 8 units lispro plus 9 units sliding scale.
--- NOTE | 2018-11-22 13:09 | NUR ---
SW following for discharge planning. Discussed with RN, RN advised no SW needs at this time and anticipates pt will discharge home with self care. SW will continue to follow.
--- NOTE | 2018-11-22 14:03 | PDOC3 ---
Discharge Summary Date of Admission: Nov 21, 2018 Date of Discharge: Nov 22, 2018 Follow-Up: 3-5 days Admitting Diagnosis comment: VTE Prophylaxis Ordered VTE Prophylaxis Devices: Yes VTE Pharmacological Prophylaxi: Yes Assessment/Plan Assessment/Plan invasive carcinoma, left breast GERD HTN HYPERLIPIDEMIA home today, see Dr Hermosillo for drain removal soon HOME MEDS SRINIVASAN NEAL MD Nov 22, 2018 09:43 Brief Hospital Course Ms. Chun is a 58 old [sex] who presented with [INVASIVE BREAST CANCER ] CONDITION AT DISCHARGE: Improved Discharge Medications Current Medications Ondansetron HCl (Zofran) 4 mg PRN Q6HRS PRN IV NAUSEA/VOMITING; Start 11/21/18 at 07:00; Stop 11/22/18 at 06:59; Status DC Fentanyl Citrate (Fentanyl 2ml Vial) 25 mcg PRN Q5MIN PRN IV MILD PAIN Last administered on 11/21/18at 13:58; Start 11/21/18 at 07:00; Stop 11/22/18 at 06:59 ; Status DC Fentanyl Citrate (Fentanyl 2ml Vial) 50 mcg PRN Q5MIN PRN IV MODERATE TO SEVERE PAIN Last administered on 11/21/18at 14:15; Start 11/21/18 at 07:00; Stop 11/22/18 at 06:59; Status DC Morphine Sulfate (Morphine Sulfate) 1 mg PRN Q10MIN PRN IV SEVERE PAIN; Start 11/21/18 at 07:00; Stop 11/22/18 at 06:59; Status DC Ringer's Solution 1,000 ml @ 30 mls/hr Q24H IV Last administered on 11/21/18at 09:02; Start 11/21/18 at 07:00; Stop 11/21/18 at 18:59; Status DC Lidocaine HCl (Xylocaine-Mpf 1% 2ml Vial) 2 ml PRN 1X PRN ID IV START; Start at 07:00; Stop 11/22/18 at 06:59; Status DC Hydromorphone HCl (Dilaudid) 0.5 mg PRN Q10MIN PRN IV SEV PAIN, Second choice; Start 11/21/18 at 07:00; Stop 11/22/18 at 06:59; Status DC Prochlorperazine Edisylate (Compazine) 5 mg PACU PRN PRN IV NAUSEA, MRX1; Start 11/21/18 at 07:00; Stop 11/22/18 at 06:59; Status DC Cefazolin Sodium/ Dextrose 50 ml @ 100 mls/hr 1X PREOP PRN IV PRIOR TO PROCEDURE Last administered on 11/21/18at 10:55; Start 11/21/18 at 06:00; Stop at 18:00; Status DC Lidocaine/Sodium Bicarbonate (Buffered Lidocaine 1%) 3 ml 1X ONCE INJ Last administered on 11/21/18at 09:43; Start 11/21/18 at 09:00; Stop 11/21/18 at 09:01 ; Status DC Propofol 20 ml @ As Directed STK-MED ONCE IV ; Start 11/21/18 at 08:35; Stop at 08:37; Status DC Lidocaine HCl (Lidocaine Pf 2% Vial) 5 ml STK-MED ONCE .ROUTE ; Start 11/21/18 at 08:35; Stop 11/21/18 at 08:37; Status DC Dexamethasone Sodium Phosphate (Decadron) 20 mg STK-MED ONCE .ROUTE ; Start at 08:35; Stop 11/21/18 at 08:37; Status DC Ondansetron HCl (Zofran) 4 mg STK-MED ONCE .ROUTE ; Start 11/21/18 at 08:35; Stop 11/21/18 at 08:37; Status DC Midazolam HCl (Versed) 2 mg STK-MED ONCE .ROUTE ; Start 11/21/18 at 08:35; Stop 11/21/18 at 08:37; Status DC Fentanyl Citrate (Fentanyl 2ml Vial) 100 mcg STK-MED ONCE .ROUTE ; Start at 08:36; Stop 11/21/18 at 08:38; Status DC Lidocaine/Sodium Bicarbonate (Buffered Lidocaine 1%) 3 ml 1X ONCE INJ Last administered on 11/21/18at 10:23; Start 11/21/18 at 09:15; Stop 11/21/18 at 09:16 ; Status DC Bupivacaine HCl/ Epinephrine Bitart (Sensorcain-Mpf Epi 0.5%-1:[id number]) 30 ml STK -MED ONCE .ROUTE Last administered on 11/21/18at 11:15; Start 11/21/18 at 10:41 ; Stop 11/21/18 at 10:43; Status DC Methylene Blue (Methylene Blue) 1 ml STK-MED ONCE .ROUTE Last administered on at 11:15; Start 11/21/18 at 10:41; Stop 11/21/18 at 10:43; Status DC Ketorolac Tromethamine (Toradol For Or Only) 30 mg STK-MED ONCE INJ ; Start at 11:11; Stop 11/21/18 at 11:13; Status DC Isoflurane (Isoflurane) 60 ml STK-MED ONCE IH ; Start 11/21/18 at 11:11; Stop at 11:13; Status DC Ephedrine Sulfate (ePHEDrine PF IN SALINE SYRINGE) 50 mg STK-MED ONCE IV ; Start 11/21/18 at 11:19; Stop 11/21/18 at 11:21; Status DC Propofol 20 ml @ As Directed STK-MED ONCE IV ; Start 11/21/18 at 13:05; Stop at 13:07; Status DC Hydrochlorothiazide (Hydrodiuril) 25 mg DAILY PO Last administered on at 08:56; Start 11/22/18 at 09:00 Levothyroxine Sodium (Synthroid) 75 mcg DAILYAC PO Last administered on at 06:35; Start 11/22/18 at 07:30 Pantoprazole Sodium (Protonix) 40 mg DAILYAC PO Last administered on 11/22/18at 06:35; Start 11/22/18 at 07:30 Insulin Glargine (Lantus) 26 units DAILY SQ Last administered on 11/22/18at 09: 09; Start 11/22/18 at 09:00 Insulin Human Lispro (HumaLOG) 8 units TIDWMEALS SQ Last administered on at 12:38; Start 11/21/18 at 17:00 Non-Formulary Medication (Losartan/ Hydrochlorothiazide (Losartan-Hctz 50-12.5 Mg Tab)) 1 each DAILY PO ; Start 11/22/18 at 09:00; Status UNV Pramipexole Dihydrochloride (miraPEX) 0.25 mg QHS PO Last administered on at 21:55; Start 11/21/18 at 21:00 Diphenhydramine HCl (Benadryl) 25 mg PRN Q6HRS PRN PO ITCHING; Start 11/21/18 at 13:30 Enoxaparin Sodium (Lovenox 40mg Syringe) 40 mg Q24H SQ Last administered on at 08:58; Start 11/22/18 at 09:00 Sodium Chloride (Normal Saline Flush) 3 ml QSHIFT PRN IV AFTER MEDS AND BLOOD DRAWS; Start 11/21/18 at 13:30 Potassium Chloride/Sodium Chloride 1,000 ml @ 75 mls/hr [id number] IV Last administered on 11/22/18at 06:36; Start 11/21/18 at 14:30 Oxycodone/ Acetaminophen (Percocet 5/325) 1 tab PRN Q4HRS PRN PO MILD PAIN, 1ST CHOICE Last administered on 11/22/18at 03:45; Start 11/21/18 at 13:30 Oxycodone/ Acetaminophen (Percocet 5/325) 2 tab PRN Q4HRS PRN PO MODERATE PAIN , SEVERE PAIN; Start 11/21/18 at 13:30 Hydromorphone HCl (Dilaudid) 1 mg PRN Q3HRS PRN IV PAIN Last administered on at 14:58; Start 11/21/18 at 13:30 Docusate Sodium (Colace) 100 mg BID PO Last administered on 11/22/18at 08:57; Start 11/21/18 at 21:00 Ondansetron HCl (Zofran) 4 mg PRN Q6HRS PRN IV NAUESA, 1ST CHOICE; Start at 13:30 Insulin Human Lispro (HumaLOG VIAL) 3 unit 1X ONCE SQ Last administered on at 13:41; Start 11/21/18 at 13:45; Stop 11/21/18 at 13:56; Status DC Losartan Potassium (Cozaar) 50 mg DAILY PO Last administered on 11/22/18at 08:57 ; Start 11/22/18 at 09:00 Lorazepam (Ativan) 0.5 mg PRN Q8HRS PRN PO ANXIETY / AGITATION; Start 11/21/18 at 18:00; Stop 11/21/18 at 18:02; Status DC Lorazepam (Ativan) 0.5 mg PRN Q6HRS PRN PO ANXIETY / AGITATION Last administered on 11/21/18at 18:25; Start 11/21/18 at 18:15 Insulin Glargine (Lantus) 20 units 1X ONCE SQ Last administered on 11/21/18at 22:00; Start 11/21/18 at 21:30; Stop 11/21/18 at 21:31; Status DC Insulin Human Lispro (HumaLOG) 15 units 1X ONCE SQ Last administered on at 21:59; Start 11/21/18 at 21:30; Stop 11/21/18 at 21:31; Status DC Insulin Human Lispro (HumaLOG) 0-9 UNITS TIDWMEALS SQ Last administered on 11/22at 12:40; Start 11/22/18 at 08:00 Dextrose (Dextrose 50%-Water Syringe) 12.5 gm PRN Q15MIN PRN IV SEE COMMENTS; Start 11/21/18 at 21:15 Active Scripts Active Reported Microgestin Fe 1.5-30 Tab (Noreth A-Et Estra/Fe Fumarate) 1 Each Tablet 1 Each PO QODAY Multivitamins (Multivitamin) 1 Each Tablet 1 Each PO DAILY Cranberry (Cranberry Extract) 200 Mg Capsule 200 Mg PO DAILY Hydrochlorothiazide Tablet (Hydrochlorothiazide) 25 Mg Tablet 25 Mg PO DAILY Simvastatin 40 Mg Tablet 40 Mg PO HS Humalog (Insulin Lispro) 100 Unit/1 Ml Cartridge 8 Unit SQ TIDAC Levothyroxine Sodium 75 Mcg Tablet 75 Mcg PO DAILYAC Mirapex (Pramipexole Di-Hcl) 0.25 Mg Tablet 0.25 Mg PO HS Tresiba Flextouch U-100 (Insulin Degludec) 100 Unit/1 Ml Insuln.pen 26 Unit SQ AM Losartan-Hctz 50-12.5 Mg Tab (Losartan/Hydrochlorothiazide) 1 Each Tablet 1 Each PO DAILY Nexium Capsule (Esomeprazole Magnesium) 40 Mg Capsule.dr 40 Mg PO DAILYAC Vital Signs Vital Signs Date Time Temp Pulse Resp B/P (MAP) Pulse Ox O2 Delivery O2 Flow Rate FiO2 11/22/18 11:00 98.1 81 16 118/50 (72) Room Air 96.0 98.1 11/22/18 07:00 96 Labs Laboratory Tests Test 11/21/18 08:44 11/21/18 13:23 11/21/18 16:50 11/21/18 20:18 Glucose (Fingerstick) 146 mg/dL (70-99) 220 mg/dL (70-99) 243 mg/dL (70-99) 355 mg/dL (70-99) Test 11/22/18 07:58 11/22/18 11:55 Glucose (Fingerstick) 364 mg/dL (70-99) 315 mg/dL (70-99) Laboratory Tests Test 11/21/18 16:50 11/21/18 20:18 11/22/18 07:58 11/22/18 11:55 Glucose (Fingerstick) 243 mg/dL (70-99) 355 mg/dL (70-99) 364 mg/dL (70-99) 315 mg/dL (70-99) Allergies Allergies Coded Allergies Type Severity Reaction Last Updated Verified No Known Drug Allergies 11/19/18 No Disposition/Orders: D/C to Home Patient Instructions D/C PLANNING 33 MIN SRINIVASAN NEAL MD Nov 22, 2018 14:03
--- NOTE | 2018-11-22 17:03 | NUR ---
Discharge Note: AVI ROB Discharge instructions and discharge home medications reviewed with patient and a copy given. All questions have been answered and understanding verbalized. The following instructions and handouts were given: Bulb care handout. FF up with surgeon within a week. FF up with PCP in 1-2 weeks. Discontinued lines and drains: peripheral IV catheter intact. Patient tolerated removal with no complications noted. Patient discharged to home with self-care with patient's spouse via wheelchair at 1540.
--- NOTE | 2018-11-26 15:09 | PATHOLOGY ---
[facility] Accession Number: [id number] . 01 Material submitted: . PART A: LEFT AXILLARY SENTINEL LYMPH NODE "HOT AND BLUE" - FS PART B: LEFT AXILLARY SENTINEL LYMPH NODE "HOT" - FS PART C: LEFT AXILLARY SENTINEL LYMPH NODE " HOT AND BLUE" - FS PART D: LEFT BREAST, MEDIAL MARGIN -FS PART E: LEFT BREAST MASS, 10:00 PART F: LEFT BREAST TISSUE, 10:00 PART G: LEFT BREAST TISSUE 10:00, SUPERIOR TO 1ST SPECIMEN PART H: LEFT BREAST TISSUE 10:00, SUPERIOR TO 1ST SPECIMEN PART I: INFERIOR LEFT BREAST TISSUE . 01 Clinical history: . Breast cancer . 02 Diagnosis: A. "Left axillary sentinel lymph node, hot and blue", biopsy: - One lymph node with no evidence of carcinoma (0/1). - Cytokeratin immunoperoxidase stain negative. . B. "Left sentinel lymph node #2, hot", biopsy: - One lymph node with no evidence of carcinoma (0/1). - Cytokeratin immunoperoxidase stain negative. . C. "Left axillary sentinel lymph node #3, hot and blue", biopsy: - One lymph node with no evidence of carcinoma (0/1). - Cytokeratin immunoperoxidase stain negative. . D. Breast, "medial margin", excision: - Fibroadenomatoid change, focal. - Mild chronic inflammation, focal. - Tiny microcalcification present in association with benign ductal epithelium. - No evidence of atypia or malignancy. . E. Breast mass, left, 10:00, excision: - INVASIVE WELL-DIFFERENTIATED DUCTAL CARCINOMA (MBR GRADE I). - Invasive adenocarcinoma measures 1.1 cm, at least. - Invasive adenocarcinoma is present focally at one margin of excision. . F. "Left breast tissue 10:00", excision: - Fibroadipose tissue with scant unremarkable ductal epithelium. - No evidence of atypia or malignancy. . G. "Left breast tissue 10:00, superior to first specimen", excision: - Breast tissue and fibroadipose tissue with no evidence of atypia or malignancy. - Attached portion of unremarkable skeletal muscle. . H. "Left breast tissue 10:00, superior to first specimen", excision: - Fibroadipose tissue and ductal epithelium with no evidence of atypia or malignancy. . I. "Inferior breast tissue", excision: - INVASIVE WELL-DIFFERENTIATED DUCTAL CARCINOMA (MBR GRADE I). - Focal associated ductal carcinoma in situ, cribriform type, nuclear grade 2. - Invasive adenocarcinoma is present at margins of specimen; ductal carcinoma in situ is located 1 mm away from the closest margin of excision. . (Please see comment and synoptic report). [facility]/11/26/2018 . 02 Comment: Clinical correlation with the relationships of the various locations of the breast excision specimens (D through I) is required to determine the final margins of excision. . The tumor in this case is morphologically very similar to that seen in this patient's previous positive breast biopsy ([id number]) which has been re-reviewed. . . SYNOPTIC REPORT: Procedure: Excision (less than total mastectomy). Specimen laterality: Left. Tumor size: Invasive carcinoma measures 1.2 cm, at least (several margins are positive). Histologic type: Invasive carcinoma of no special type (ductal, not otherwise specified). Histologic grade: The glandular score is 1, nuclear pleomorphism score is 2, and mitotic score is 1. Overall grade: Grade I (scores of 3, 4, or 5). Ductal carcinoma in situ: Present; negative for extensive intraductal component. Size of ductal carcinoma in situ: Approximately 2 mm. Architectural pattern: Cribriform. Nuclear grade II. Necrosis - not identified. . Margins: Invasive carcinoma is present focally at the margin in specimen "E", and more extensively at the margin in specimen "I". DCIS margins: Negative; ductal carcinoma in situ is located 1 mm away from the closest margin. Regional lymph nodes: Uninvolved by Tumor cells. Number of lymph nodes examined: 3. Number of sentinel lymph nodes examined: 3. Treatment effect: No known presurgical therapy. Pathologic staging: Primary tumor is pT1c (tumor greater than 10 mm but less than 20 mm in greatest dimension). Regional lymph nodes: pN0 (i-). (SKM:[facility] 11/26/2018) . 02 Electronically signed: . Timothy Benitez MD, Pathologist NPI- [id number] . 01 Gross description: . A. The specimen is received fresh for frozen section and is designated "left axillary sentinel lymph node hot and blue". This consists of an ovoid segment of yellow-red fatty tissue measuring up to 1.9 cm in length and 1.4 cm in width. There is focal bluish discoloration. Sectioning reveals a partially fatty replaced pink-smith lymph node measuring up to 1.4 cm in greatest dimension showing focal bluish discoloration. This is submitted for frozen section as FSA1. The tissue remaining from frozen section is submitted for permanent sections as A1. . B. The specimen is received fresh for intraoperative consultation and is designated "left sentinel lymph node #2 hot". This consists of a segment of yellow fatty appearing tissue measuring up to 2.1 cm in length and 1.7 cm in width. Sectioning reveals a largely fatty replaced yellow and pink lymph node. There is no gross evidence of tumor involvement. This is submitted for frozen section as FSB1. The tissue remaining from frozen section is submitted for permanent sections as B1. . C. The specimen is received fresh for intraoperative consultation and is designated "left axillary sentinel lymph node #3 hot and blue". This consists of an ovoid segment of yellow-red fatty tissue measuring up to 2.6 cm in length and 1.5 cm in width. There is focal bluish discoloration. Sectioning reveals a partially fatty replaced yellow to pink-burnham lymph node showing bluish discoloration, measuring up to 1.8 cm in greatest dimension. This is submitted for frozen section as FSC1. The tissue remaining from frozen section is submitted for permanent sections as C1. . D. The specimen is received fresh for intraoperative consultation and is designated "medial margin". This consists of an ovoid-shaped segment of yellow-smith slightly firm fatty tissue measuring up to 1.4 x 1.1 x 0.4 cm in greatest dimension. There is focal cautery artifact. This is submitted for frozen section as FSD1. The tissue remaining from frozen section is submitted for permanent sections as D1. . E. The specimen is received fresh and is designated "left breast mass 10:00". This consists of a breast lumpectomy composed of yellow fatty and smith fibrous breast tissue. The specimen measures 7.0 x 5.5 x 2.5 cm in greatest dimension. A localizing wire is inserted into the specimen at one end and the tip of the wire protrudes from one broad surface. The external surface overlying the course of the wire within the specimen is inked with blue ink. The remainder of the margin is inked with black ink. The specimen is serially sectioned. In the area involving the localizing wire, there is a smith fairly well demarcated firm mass which measures approximately 1.0 cm in greatest dimension. This abuts the blue inked margin. The remainder of the specimen is comprised of yellow and smith-white fibrofatty tissue in roughly equal proportions. The area along the course of the localizing wire is submitted as E1-E4. Multiple additional route sales representative sections of the specimen are submitted for microscopy as E5-E15. . F. The specimen is received fresh and is designated "left breast tissue 10:00". This consists of an ovoid-shaped segment of yellow-red and pink-smith fibrofatty tissue measuring up to 2.1 x 1.8 x 0.4 cm. This is submitted without sectioning as F1. (JPM:aga; 11/21/2018) . G. The specimen is received in formalin, labeled "Mayra Chun, left breast tissue 10:00, superior to first specimen", is an unoriented fibroadipose tissue weighing 10 g and measuring 4.5 x 4.0 x 0.9 cm. The specimen is inked black, serially sectioned to show a predominantly nesting, yellow lobulated cut surface with burnham-white fibrous tissue interspersed in the ratio 90:10. The specimen is entirely submitted in G1-G11 (each slice bisected) . H. The specimen is received in formalin, labeled "Mayra Chun, left breast tissue 10:00, superior to first specimen", is an unoriented, disrupted fibroadipose tissue weighing 7 g and measuring 4.5 x 3.0 x 0.6 cm. The outer surface of the specimen is inked black and the disruption inked orange. The specimen is serially sectioned to reveal a burnham-white indurated focal area measuring 1.6 x 0.7 x 0.5 cm at one edge. The remaining parenchyma is glistening, yellow homogeneous. The specimen is entirely submitted (contiguous) sections in H1-H9.(H2-H3 = burnham-white, focal area and H4-H8 = defect inked orange) . I. The specimen is received in formalin, labeled "Chun, Mayra, inferior breast tissue", is an unoriented fibroadipose tissue weighing 6 g and measuring 4.5 x 3.0 x 0.5 cm. The specimen is inked black, serially sectioned to reveal a burnham-white indurated focal area measuring 2.8 x 1.7 x 0.5 cm at one edge. The remaining parenchyma is glistening, yellow homogeneous. The specimen is entirely submitted (contiguous) sections in I1-I9. (I4-I7 = burnham-white, focal area) . Specimen excised at: Not provided, placed in formalin: Not provided for parts G, H and I: Formalin exposure cannot be determined. (SWS; 11/21/2018) . . INTRAOPERATIVE CONSULTATION WITH FROZEN SECTION: (Ramin Pena MD) . A. Left axillary sentinel lymph node #1 hot and blue: - Negative for tumor. . The results are reported to Dr. Hermosillo in the operating room. . B. Left axillary sentinel lymph node #2 hot: - Negative for tumor. . The results are reported to Dr. Hermosillo in the operating room. . C. Left axillary sentinel lymph node #3 hot and blue: - Negative for tumor. . D. Medial margin: - Fibrosis - negative for tumor. . The results are reported to Dr. Hermosillo in the pathology area. (JPM:aga; 11/21/2018) . Frozen section performed at [facility], [address] [place] [id number]. SHS/SHS . 02 Pathologist provided ICD-10: C50.912, D05.12, N61.0, Z17.0 . 02 CPT . 017595, 122892, 078536, 345514, 929443, 430027, 228669, 315959, 058517, [id number], 595977, 362605, 761846, 399161 Specimen Comment: A courtesy copy of this report has been sent to Specimen Comment: [phone], . Specimen Comment: Report sent to and Performed at: 01 [facility] [address] [place] [id number] MD Justin Porras MD Phone: [phone] Performed at: 02 [facility] [address] [id number] MD Jason Jovel MD Phone: [phone]
--- NOTE | 2018-11-29 12:22 | PDOC4 ---
Operative Note Operative Note Addendum: FADI ROBERTSON MD on 11/21/18 @ 14:38 Patient was taken to the breast center where needle localization of the previous biopsy marker was done. She then went to the nuclear medicine suite and was injected for sentinel lymph node biopsy.She was taking to the operating suite and the left breast arm and chest were prepped and draped in usual sterile fashion. 5 mL of methylene blue were injected intradermally circumareolarly in the quadrant corresponding to the tumor location. Gentle breast massage was carried out for 5 minutes. The axillary incision was infiltrated with local anesthetic, incised, dissection carried down into the axilla. A "hot" blue lymph node was harvested. A second "hot" node was harvested. A third node which was "hot" and blue was also removed. No other stained nodes or C trac activity noted. We then turned our attention to the lumpectomy. Local anesthetic was infiltrated in the skin along the incision line in the upper inner quadrant. Incision made. The guidewire was brought into the wound. A cylinder of tissue around the thickened portion of the wire corresponding to the preoperative localization was harvested with sharp dissection and sent for specimen radiograph. Initial x-ray did not reveal the biopsy marker. Additional tissue was removed medially, superiorly, and inferiorly to original resection. Each was sent for specimen radiograph, however, none contained the biopsy marker. I was unable to appreciate any visual or palpable evidence that tumor remained. As such, when a correct sponge count was obtained and hemostasis present the breast wound was closed. 3-0 Vicryl to approximate the remaining breast tissue. Subcuticular 4-0 Monocryl Steri-Strips for the skin. A 19 [place] round Fabien drain was placed in the axillary incision and brought out an inferior lateral stab wound.Secured with a silk stitch. When hemostasis was present and a sponge count correct the axillary incision was closed with a subcuticular 4-0 Monocryl and Steri-Strips. Sterile dressings applied. Patient awakened from her anesthetic and taken to the recovery room in satisfactory condition. FADI ROBERTSON MD Nov 29, 2018 12:22
--- NOTE | 2018-12-17 10:57 | RAD ---
Left specimen mammogram #3, 11/21/2018: A digital mammogram of the surgical specimen does not demonstrate a breast biopsy marker. There is a tiny smooth nodule evident in the specimen at the D/7 level in the specimen contained. Left specimen mammogram #4, 11/21/2018: A digital mammogram of this surgical specimen does not demonstrate a breast biopsy marker. DICTATED and SIGNED BY: SARKIS PEREZ MD DATE: 11/21/18 1256 MTDD
[2018-12-28] MEDS ORDERED: DOXY100T PO (15:29)
[2019-04-11] MEDS ORDERED: ZOLP5TAB PO (11:07)
== END 2018-11-22 16:50 | disposition home or self-care (01) | DRG 581 ==
LOC: SURG 08:10 → 4 NORTH 13:22
PROVIDERS: ADMIT Surgery; ATTEND Surgery
PROC: 0HBU0ZZ Excision of Left Breast, Open Approach (ICD-10-PCS; principal; 2018-11-21 10:30)
PROC: 07B60ZX Excision of Left Axillary Lymphatic, Open Approach, Diagnostic (ICD-10-PCS; 2018-11-21 10:30)
DX: C50.212 Malignant neoplasm of upper-inner quadrant of left female breast (principal); E11.9 Type 2 diabetes mellitus without complications; E78.5 Hyperlipidemia, unspecified; I10 Essential (primary) hypertension; K21.9 Gastro-esophageal reflux disease without esophagitis; Z80.9 Family history of malignant neoplasm, unspecified; Z79.4 Long term (current) use of insulin; Z79.899 Other long term (current) drug therapy
CPT/HCPCS: 19281; 38792; 76098; 82962; 88305; 88307; 88331; 88342; 96374; A7015; A9541; J0696; J1100; J1170; J1650; J1815; J1885; J2001; J2250; J2405; J2704; J3010; J3490; J7120; Q9968; G0378

== ENCOUNTER → 2018-12-21 | Outpatient (CLI) | payer OTHER ==
[2018-11-22 11:00] VITALS: BP 118/50
[~2018-12-21] MED LIST changes: -HYDROmorphone 2 MG/ML VIAL IV PRN; -IV RINGERS,LACTATED 1000ML 1,000 ML IV SCH; -LIDOCAINE 1% PF 2 ML VIAL. ID PRN; -MORPHINE SULFATE 4 MG/ML VIAL. IV PRN; -ONDANSETRON PF 4 MG/2 ML VIAL. IV PRN; -PROCHLORPERAZINE 10 MG/2 ML VIAL. IV PRN; -fentaNYL PF VIAL 100 MCG/2 ML VIAL IV PRN
--- NOTE | 2018-12-21 09:42 | RAD ---
DATE: 12/21/2018 EXAM: DIGITAL DIAGNOSTIC LT HISTORY: Left breast cancer, postop evaluation COMPARISON: 10/05/2018, 11/21/2018 This study was interpreted with the benefit of Computerized Aided Detection (CAD). Breast Density: HETERO The breast parenchyma is heterogenously dense, which could reduce sensitivity of mammography. Breast parenchyma level C. FINDINGS: CC and straight mediolateral views were obtained. There has been interval surgery. The medial left breast biopsy marker seen preoperatively is no longer visible and was presumably removed at surgery. No new or enlarging breast densities are seen. Again noted are numerous scattered microcalcifications. There is new skin thickening which is most prominent medially and inferiorly. This is apparently related to clinically evident postoperative inflammation/infection. IMPRESSION: The left breast biopsy marker is no longer visible and was presumably removed at surgery. PQRS compliance statement: Patient information was entered into a reminder system with a target due date for the next mammogram. Mammography is a sensitive method for finding small breast cancers, but it does not detect them all and is not a substitute for careful clinical examination. A negative mammogram does not negate a clinically suspicious finding and should not result in delay in biopsying a clinically suspicious abnormality. "Our facility is accredited by the [employer] Mammography Program."
== END | disposition home or self-care (01) ==
LOC: MAMMO 08:57
PROVIDERS: ATTEND Surgery
DX: C50.812 Malignant neoplasm of overlapping sites of left female breast (principal)
CPT/HCPCS: 77065

== ENCOUNTER 2018-12-31 08:38 | Day surgery (SDC) | payer OTHER ==
[~2018-12-31] VITALS: Ht 167.6 cm; Wt 71.2 kg
[~2018-12-31 08:38] MED LIST changes: +BUPIVAC MPF-EPI 0.5%-1:200000 30 ML VIAL. ONE; +DOXY100T PO; +HYDROmorphone 2 MG/ML VIAL IV PRN; +IV RINGERS,LACTATED 1000ML 1,000 ML IV SCH; +LIDOCAINE 1% PF 2 ML VIAL. ID PRN; +ONDANSETRON PF 4 MG/2 ML VIAL. IV PRN; +PROCHLORPERAZINE 10 MG/2 ML VIAL. IV PRN; +fentaNYL PF VIAL 100 MCG/2 ML VIAL IV PRN
[2018-12-31] MEDS ORDERED: INSULIN LISPRO 100 UNIT/ML 3ML VIAL. SQ ONE ×2 (09:30→11:00)
[2018-12-31] MEDS ORDERED: LIDOCAINE 2% PF 5 ML VIAL. ONE (09:49)
[2018-12-31] MEDS ORDERED: PROPOFOL 20 ML IV ONE (09:49)
[2018-12-31] MEDS ORDERED: MIDAZOLAM HCL/PF 2 MG/2 ML VIAL. ONE (09:51)
[2018-12-31] MEDS ORDERED: DEXAMETHASONE SOD PHOS 20 MG/5 ML VIAL. ONE (11:13)
[2018-12-31] MEDS ORDERED: fentaNYL PF VIAL 100 MCG/2 ML VIAL ONE ×2 (11:13→12:31)
[2018-12-31] MEDS ORDERED: ONDANSETRON PF 4 MG/2 ML VIAL. ONE (11:13)
[2018-12-31] MEDS ORDERED: PHENYLEPHRINE 10 MG/ML VIAL. ONE (11:21)
[2018-12-31] MEDS ORDERED: SEVOFLURANE 31 TO 60 MINUTES. IH ONE (11:34)
[2018-12-31] MEDS ORDERED: BACITRACIN/POLYMYXIN B OPHTH OINTMENT 3.5GM TUBE. ONE (11:46)
[2018-12-31] MEDS ORDERED: BACITRACIN TOPICAL OINT 14GM TUBE. TP ONE (11:50)
[2018-12-31] MEDS: fentaNYL PF VIAL 100 MCG/2 ML VIAL IV PRN ×2 (12:35→12:42)
--- NOTE | 2018-12-31 12:36 | PDOC ---
BRIEF OPERATIVE NOTE Date: Dec 31, 2018 Pre-Op Diagnosis invasive carcinoma, left breast s/p "lumpectomy" with involved margin, eschar Post-Op Diagnosis same Procedure Performed re-excision left breast tissue, inferior to previous resection, excisional debridement of eschar with primary closure [facility] Anesthesia Type: General Blood Loss 10cc IV Fluid 1000cc Specimens Obtained re-excision left breast tissue, with new inferior margin Findings old biopsy cavity, some serous fluid, full thickness eschar Complications none Operative Note Wk # [id number] FADI ROBERTSON MD Dec 31, 2018 12:36
--- NOTE | 2018-12-31 12:46 | DISCH ---
DISCHARGE INSTRUCTIONS Condition on Discharge Condition on Discharge: Stable Activity After Discharge Activity Instructions for Disc: Activity as tolerated, Avoid exertion Lifting Instructions after Dis: No heavy lifting Driving Instructions after Dis: Do not drive today Weight Bearing Status after Di: Full weight bearing Diet after Discharge Diet after Discharge: Diabetic No Calorie Level Wound Incision Care Wound/Incision Care: Ice to area for comfort, Keep wound/cast CDI Checks after Discharge Checks after discharge: Check blood sugar, ac/hs Follow-Up Follow up with: [facility] 01/04` Treatment/Equipment after DC Adaptive Equipment Issued: None FADI ROBERTSON MD Dec 31, 2018 12:46
--- NOTE | 2018-12-31 12:58 | OP ---
DATE OF SURGERY: 12/31/2018 PREOPERATIVE DIAGNOSIS: Invasive carcinoma, left breast, status post lumpectomy with involved margin and eschar. POSTOPERATIVE DIAGNOSIS: Invasive carcinoma, left breast, status post lumpectomy with involved margin and eschar. PROCEDURE: Reexcision left breast inferior to previous resection, excisional debridement of full thickness eschar with primary closure. SURGEON: Clarke Robertson MD. ANESTHESIA: General LMA. ESTIMATED BLOOD LOSS: 10 mL. INTRAVENOUS FLUIDS: 1 liter. INDICATIONS: The patient is a 58-year-old a month out from a lumpectomy with sentinel node biopsy. There was involvement of the previous resection at the inferior margin and she is brought back for reexcision. She also developed an eschar from some skin slough from the methylene blue and this will be excised as well. DESCRIPTION OF PROCEDURE: The patient brought to the operating suite, given a general LMA and the left breast prepped and draped in usual sterile fashion. The old lumpectomy incisional scar was infiltrated with local anesthetic and incised. Dissection carried down to the previous biopsy cavity and a contiguous breast tissue inferior to the original biopsy site was harvested en bloc with the skin. A specimen was marked with a silk stitch on the new inferior margin. Hemostasis obtained with cautery. Breast tissue approximated with 3-0 Vicryl, skin closed with a subcuticular 4-0 Monocryl and Steri-Strips. We then turned our attention to the eschar. It was sharply excised exposing breast tissue. The wound was approximated with interrupted 5-0 nylon sutures to near completion. The small remaining defect was treated with antibiotic ointment and a short strip of 0.25-inch plain NuGauze soaked in saline. Sterile dressing applied. The patient awakened from her anesthetic and taken to the recovery room in satisfactory condition. CLARKE ROBERTSON MD DR: RAFY/pamela JOB#: [id number] / [id number] PRIETO Cunningham MD, VINAY MD
[2018-12-31] MEDS ORDERED: MORPHINE SULFATE 4 MG/ML VIAL. ONE (13:02)
[2018-12-31] MEDS: MORPHINE SULFATE 4 MG/ML VIAL. IV PRN ×4 (13:04→14:04)
[2018-12-31] MEDS ORDERED: OXYC1TAB15 PO (13:06)
[2018-12-31] MEDS ORDERED: SODI473S25 MC (13:07)
[2018-12-31 13:39] VITALS: BP 141/52
[2018-12-31] MEDS ORDERED: oxyCODONE/APAP 5/325 1 TAB TABLET PO ONE (14:15)
--- NOTE | 2019-01-03 17:09 | PATHOLOGY ---
[facility] Accession Number: [id number] . 01 Material submitted: . LEFT BREAST . 01 Clinical history: . Invasive ductal carcinoma . 02 Diagnosis: Skin and breast tissue, left breast inferior margin excision: - No residual invasive ductal carcinoma identified-new inferior margin negative for tumor. - Previous biopsy site showing focal organizing hemorrhage, coagulative changes, fat necrosis, reactive fibrosis, and foreign body giant cell and suture granulomatous reaction. - Focal dense stromal fibrosis of surrounding breast tissue. 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 02 Comment: Sections of the left breast inferior margin re-excision show previous biopsy site changes. There is focal dense stromal fibrosis within the surrounding breast tissue containing a few scattered tubular structures. Immunoperoxidase stains for myoepithelial cells are obtained on block A8 to rule out the possibility of residual invasive carcinoma and yield the following results: . P63 (A8): Small tubular structures show presence of myoepithelial cells. Smooth muscle myosin heavy chain (A8): Small tubular structures show presence of myoepithelial cells. . Thus, there is no evidence of residual invasive ductal carcinoma. The new inferior margin of excision is free of neoplasm. . 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 Special stains performed: Immunoperoxidase stains for p63 and smooth muscle myosin heavy chain on A8. . 02 Electronically signed: . Ramin Pena MD, Pathologist NPI- [id number] . 01 Gross description: . The specimen is received in formalin, labeled "Mayra Chun, left breast mass" and consists of a 28 g lumpectomy specimen with a suture designating the new inferior margin (inked black). The breast tissue measures 5.3 x 5.0 x 2.8 cm with an overlying unremarkable smith skin ellipse measuring 4.0 x 0.6 x 0.6 cm. The superior margin displays a previous biopsy cavity with surrounding biopsy changes measuring 2.2 x 2.0 cm. It is serially sectioned into 12 slices revealing a firm fibrous area in slices 6-12 measuring 3.0 x 1.2 x 0.8 cm that grossly appears to extend to the black inked inferior margin in slices 9-12. Surrounding this area are extensive biopsy changes which focally abut the black inked inferior margin. No additional masses or lesions are identified. Operations Examiner sections to include the entire biopsy cavity/possible residual tumor are submitted as follows: . A1-A3: Slice 6, trisected A4-A6: Slice 7, trisected A7-A9: Slice 8, trisected A10-A11: Slice 9, bisected A12: Slice 10 A13: Slices 11-12 . The specimen was obtained at 11:18 AM on 12/31/18 and placed in formalin at 11:20 AM. The cold ischemic that is 2 minutes and the total formalin fixation time is greater than 6 hours but less than 72 hours. (SDY; 01/01/2019) SYU/SYU . 02 Pathologist provided ICD-10: C50.912, N60.32 . 02 CPT . 238786, Y01423, Q41710 Specimen Comment: A courtesy copy of this report has been sent to Specimen Comment: [phone], . Specimen Comment: Report sent to / DR BABB Performed at: 01 [facility] [address], [place], [place] [id number] MD Justin Porras MD Phone: [phone] Performed at: [facility] [address] [place], [place] [id number] MD Ramin Pena MD Phone: [phone]
[2019-04-11] MEDS ORDERED: ZOLP5TAB PO (11:07)
== END 2018-12-31 14:51 | disposition home or self-care (01) ==
LOC: SURG 08:38
PROVIDERS: ATTEND Surgery
DX: N60.32 Fibrosclerosis of left breast (principal); E78.5 Hyperlipidemia, unspecified; E10.9 Type 1 diabetes mellitus without complications; E03.9 Hypothyroidism, unspecified; I10 Essential (primary) hypertension; Z79.899 Other long term (current) drug therapy; Z98.890 Other specified postprocedural states; Z83.3 Family history of diabetes mellitus; Z82.3 Family history of stroke; Z83.49 Family history of other endocrine, nutritional and metabolic diseases; Z82.49 Family history of ischemic heart disease and other diseases of the circulatory system; Z80.0 Family history of malignant neoplasm of digestive organs
CPT/HCPCS: 19301; 82962; 88307; 88341; 88342; A7015; J0690; J1100; J2001; J2250; J2270; J2405; J2704; J3010; J3490; J7120

== ENCOUNTER 2019-01-21 10:18 | Day surgery (SDC) | payer OTHER ==
[~2019-01-21] VITALS: Ht 167.6 cm; Wt 71.2 kg
[~2019-01-21 10:18] MED LIST changes: -BUPIVAC MPF-EPI 0.5%-1:200000 30 ML VIAL. ONE; +MORPHINE SULFATE 2 MG/ML VIAL. IV PRN; +OXYC1TAB15 PO; +SODI473S25 MC
[2019-01-21] MEDS ORDERED: MIDAZOLAM HCL/PF 2 MG/2 ML VIAL. ONE (10:24)
[2019-01-21] MEDS ORDERED: fentaNYL PF VIAL 100 MCG/2 ML VIAL ONE (10:24)
[2019-01-21] MEDS ORDERED: ONDANSETRON PF 4 MG/2 ML VIAL. ONE (10:25)
[2019-01-21] MEDS ORDERED: LIDOCAINE 2% PF 5 ML VIAL. ONE (10:25)
[2019-01-21] MEDS ORDERED: PROPOFOL 20 ML IV ONE (10:25)
[2019-01-21] MEDS ORDERED: DEXAMETHASONE SOD PHOS 20 MG/5 ML VIAL. ONE (10:25)
[2019-01-21] MEDS ORDERED: BUPIVACAINE MPF 0.5% 30 ML VIAL. ONE (10:28)
[2019-01-21] MEDS ORDERED: NEOMY/BACITR/POLYMYXIN OINT PACKET. TP ONE (10:47)
[2019-01-21] MEDS ORDERED: BUPIVACAINE MPF 0.5% 30 ML VIAL. INJ ONE (11:29)
[2019-01-21] MEDS ORDERED: IV NORMAL SALINE 1000ML BAG 1,000 ML IV SCH (11:30)
[2019-01-21] MEDS ORDERED: ePHEDrine PF IN SALINE 50 MG/10 ML SYRINGE. IV ONE (11:31)
--- NOTE | 2019-01-21 12:09 | DISCH ---
DISCHARGE INSTRUCTIONS Condition on Discharge Condition on Discharge: Stable Activity After Discharge Activity Instructions for Disc: Activity as tolerated, Avoid exertion Lifting Instructions after Dis: No heavy lifting Driving Instructions after Dis: Do not drive today Diet after Discharge Diet after Discharge: Diabetic No Calorie Level Wound Incision Care Wound/Incision Care: Ice to area for comfort, Keep wound/cast CDI Checks after Discharge Checks after discharge: Check blood sugar, ac/hs Follow-Up Follow up with: [facility] 01/25 Treatment/Equipment after DC Adaptive Equipment Issued: None FADI ROBERTSON MD Jan 21, 2019 12:09
--- NOTE | 2019-01-21 12:16 | PDOC ---
BRIEF OPERATIVE NOTE Date: Jan 21, 2019 Pre-Op Diagnosis left breast wound Post-Op Diagnosis same Procedure Performed secondary closure [facility] [place] Anesthesia Type: General (LMA) Blood Loss 1cc IV Fluid 700cc Specimens Obtained cultures Findings adequate skin to close Complications none Operative Note Wk # [id number] FADI ROBERTSON MD Jan 21, 2019 12:16
--- NOTE | 2019-01-21 12:22 | OP ---
DATE OF SURGERY: 01/21/2019 PREOPERATIVE DIAGNOSIS: Left breast wound. POSTOPERATIVE DIAGNOSIS: Left breast wound. PROCEDURE: Secondary closure. SURGEON: Fadi Robertson MD ANESTHESIA: General LMA. ESTIMATED BLOOD LOSS: 1 mL. IV FLUIDS: 700 mL. DESCRIPTION OF PROCEDURE: The patient brought to the operating suite, given general LMA and the left breast prepped and draped in usual sterile fashion. The previous sutures which had been placed were removed. The skin edges were freshened with sharp dissection. Some blue stained breast tissue was excised with cautery. The skin edges were then approximated with interrupted 4-0 and 5-0 nylon sutures. The superior medial aspect of the previous lumpectomy site was approximated with Dermabond and quarter-inch Steri-Strips. Sterile dressing applied. The patient awakened from anesthetic and taken to the recovery room in satisfactory condition. FADI ROBERTSON MD DR: RAFY/nts JOB#: [id number] / [id number]
[2019-01-21] MEDS ORDERED: OXYC1TAB15 PO (12:38)
[2019-01-21] MEDS ORDERED: oxyCODONE/APAP 5/325 1 TAB TABLET PO ONE (12:45)
[2019-01-21 13:00] VITALS: BP 155/58
[2019-04-11] MEDS ORDERED: ZOLP5TAB PO (11:07)
== END 2019-01-21 13:22 | disposition home or self-care (01) ==
LOC: SURG 10:18
PROVIDERS: ATTEND Surgery
DX: T81.89XA Other complications of procedures, not elsewhere classified, initial encounter (principal); Y83.8 Other surgical procedures as the cause of abnormal reaction of the patient, or of later complication, without mention of misadventure at the time of the procedure; Z79.899 Other long term (current) drug therapy; E03.9 Hypothyroidism, unspecified; E78.5 Hyperlipidemia, unspecified; I10 Essential (primary) hypertension; E10.9 Type 1 diabetes mellitus without complications; Z85.3 Personal history of malignant neoplasm of breast; Z98.890 Other specified postprocedural states; Z83.3 Family history of diabetes mellitus; Z82.49 Family history of ischemic heart disease and other diseases of the circulatory system; Z80.0 Family history of malignant neoplasm of digestive organs; Z82.3 Family history of stroke; Z83.49 Family history of other endocrine, nutritional and metabolic diseases
CPT/HCPCS: 13160; 82962; 87071; 87075; A7015; J0171; J0690; J1100; J2001; J2250; J2405; J2704; J3010; J3490; 87186

== ENCOUNTER → 2019-01-30 | Outpatient (CLI) | payer OTHER ==
[2019-01-21 13:00] VITALS: BP 155/58
[~2019-01-30] MED LIST changes: -HYDROmorphone 2 MG/ML VIAL IV PRN; -IV RINGERS,LACTATED 1000ML 1,000 ML IV SCH; -LIDOCAINE 1% PF 2 ML VIAL. ID PRN; -MORPHINE SULFATE 2 MG/ML VIAL. IV PRN; -ONDANSETRON PF 4 MG/2 ML VIAL. IV PRN; -PROCHLORPERAZINE 10 MG/2 ML VIAL. IV PRN; +ZOLP5TAB PO; -fentaNYL PF VIAL 100 MCG/2 ML VIAL IV PRN
== END | disposition home or self-care (01) ==
LOC: PMGWOUND 11:57
PROVIDERS: ATTEND Preventive Medicine Undersea and Hyperbaric Medicine
DX: T81.31XD Disruption of external operation (surgical) wound, not elsewhere classified, subsequent encounter (principal); E10.9 Type 1 diabetes mellitus without complications; G25.81 Restless legs syndrome; I10 Essential (primary) hypertension; E78.5 Hyperlipidemia, unspecified; E03.9 Hypothyroidism, unspecified; Z79.899 Other long term (current) drug therapy; Z85.3 Personal history of malignant neoplasm of breast; Y83.8 Other surgical procedures as the cause of abnormal reaction of the patient, or of later complication, without mention of misadventure at the time of the procedure
CPT/HCPCS: 97597; 97605

== ENCOUNTER → 2019-02-01 | Outpatient (CLI) | payer OTHER ==
[2019-01-21 13:00] VITALS: BP 155/58
== END | disposition home or self-care (01) ==
LOC: PMGWOUND 07:44
PROVIDERS: ATTEND Preventive Medicine Undersea and Hyperbaric Medicine
DX: T81.89XD Other complications of procedures, not elsewhere classified, subsequent encounter (principal); E11.9 Type 2 diabetes mellitus without complications; I10 Essential (primary) hypertension; E78.5 Hyperlipidemia, unspecified; E03.9 Hypothyroidism, unspecified; G25.81 Restless legs syndrome; Z79.899 Other long term (current) drug therapy; Z85.3 Personal history of malignant neoplasm of breast; Y83.8 Other surgical procedures as the cause of abnormal reaction of the patient, or of later complication, without mention of misadventure at the time of the procedure
CPT/HCPCS: 97605

== ENCOUNTER → 2019-06-07 | Outpatient (CLI) | payer OTHER ==
--- NOTE | 2019-06-07 16:14 | KCIC ---
Bone mineral density exam History: Malignant neoplasm left breast, pretreatment for hormonal therapy, thyroid medication use Comparison: None Findings: Bone mineral density examination utilizing DEXA was performed. Left hip bone mineral density of 0.937 g/cm2 corresponds with a T score 0.0, Z score 0.9. The bone mineral density of the lumbar spine was 1.226 g/cm2 which corresponds with a T-score of 1.6, Z score 3.0. By World [employer] on Osteoporosis criteria, a T score of 0 to-1 SD is considered to be within normal limits. A T score of -1 to -2.5 SD is considered osteopenia. A T score less than -2.5 SD is considered osteoporosis Impression: 1. There is normal bone density of the left hip and lumbar spine. Electronically signed by: Deon Glasgow MD (06/07/2019 4:11 PM) [facility]
== END | disposition home or self-care (01) ==
LOC: KCIC DEXA 14:49
PROVIDERS: ATTEND Internal Medicine Hematology & Oncology
DX: C50.812 Malignant neoplasm of overlapping sites of left female breast (principal); E03.9 Hypothyroidism, unspecified
CPT/HCPCS: 77080

== ENCOUNTER → 2019-07-25 | Outpatient (CLI) | payer OTHER ==
[2019-07-25 21:07] LABS: RHEUMATOID FACTOR <10.0 IU/mL (0.0-13.9)
[2019-07-26 20:08] LABS: CYCLIC CITRULLIN PEP AB 5 units (0-19)
[2019-07-26 21:07] LABS: ANA INTERP Negative (.)
== END | disposition home or self-care (01) ==
LOC: ONC 11:21
PROVIDERS: ATTEND Internal Medicine
DX: M79.641 Pain in right hand (principal); M79.642 Pain in left hand; E03.9 Hypothyroidism, unspecified; Z85.3 Personal history of malignant neoplasm of breast
CPT/HCPCS: 36415; 86038; 86140; 86200; 86431

== ENCOUNTER → 2019-11-07 | Outpatient (CLI) | payer OTHER ==
[~2019-11-07] MED LIST changes: +SIMV40TA18 PO; -SIMV40TA3 PO
--- NOTE | 2019-11-07 13:51 | RAD ---
DATE: 11/07/2019 EXAM: [facility] HISTORY: Left breast cancer with lumpectomy and radiation therapy COMPARISON: 10/16/2014, 11/10/2015, 09/21/2017, 10/05/2018 mammographic exams This study was interpreted with the benefit of Computerized Aided Detection (CAD). Breast Density: HETERO The breast parenchyma is heterogenously dense, which could reduce sensitivity of mammography. Breast parenchyma level C. FINDINGS: Left lumpectomy findings are stable. Right upper-outer breast calcifications are present without significant interval changes compared to the prior exams. No suspicious change. No suspicious pleomorphism suspected on magnification images acquired. No new mass or new distortion. IMPRESSION: Stable BI-RADS CATEGORY: 2 BENIGN FINDING(S) RECOMMENDED FOLLOW-UP: 12M 12 MONTH FOLLOW-UP PQRS compliance statement: Patient information was entered into a reminder system with a target due date for the next mammogram. Mammography is a sensitive method for finding small breast cancers, but it does not detect them all and is not a substitute for careful clinical examination. A negative mammogram does not negate a clinically suspicious finding and should not result in delay in biopsying a clinically suspicious abnormality. "Our facility is accredited by the [employer] Mammography Program."
== END | disposition home or self-care (01) ==
LOC: MAMMO 12:40
PROVIDERS: ATTEND Internal Medicine Hematology & Oncology
DX: R92.1 Mammographic calcification found on diagnostic imaging of breast (principal); Z85.3 Personal history of malignant neoplasm of breast; Z92.3 Personal history of irradiation
CPT/HCPCS: 77066; G0279; 77062

== ENCOUNTER → 2020-05-18 | Outpatient (CLI) | payer OTHER ==
[~2020-05-18] MED LIST changes: +MULT-445 PO; -MULT1TAB52 PO
== END | disposition home or self-care (01) ==
LOC: LAB 09:44
PROVIDERS: ATTEND Internal Medicine Pulmonary Disease
DX: Z20.828 Contact with and (suspected) exposure to other viral communicable diseases (principal); R50.9 Fever, unspecified; R53.81 Other malaise
CPT/HCPCS: U0003-CS

== ENCOUNTER → 2020-11-30 | Outpatient (CLI) | payer BC, OTHER ==
--- NOTE | 2020-11-30 13:54 | RAD ---
DATE: 11/30/2020 1:11 PM EXAM: MAMMO [facility] RY[facility] GO HISTORY: Status post left lumpectomy for breast cancer in 2018. Screening. COMPARISON: Bilateral mammogram of 11/07/2019 Bilateral CC and MLO views of the breasts were performed. Bilateral breast tomosynthesis was performed in CC and MLO projections. This study was interpreted with the benefit of Computerized Aided Detection (CAD). FINDINGS: Breast Density: HETERO The breast parenchyma Is heterogeneously dense, which could reduce sensitivity of mammography. Breast parenchyma level C No change in spiculated mass in the middle third upper inner quadrant left breast, consistent with a postoperative scar from previous lumpectomy. Stable scattered calcifications in the right breast are also noted. No suspicious masses, microcalcifications or unexplained architectural distortion is present to suggest malignancy in either breast. The visualized axillae are unremarkable. IMPRESSION: No mammographic evidence of malignancy. BI-RADS CATEGORY: 2 BENIGN FINDING(S) RECOMMENDED FOLLOW-UP: 12M 12 MONTH FOLLOW-UP Annual screening mammography is recommended, unless clinically indicated sooner based on symptoms or change in physical exam. PQRS compliance statement: Patient information was entered into a reminder system with a target due date for the next mammogram. Mammography is a sensitive method for finding small breast cancers, but it does not detect them all and is not a substitute for careful clinical examination. A negative mammogram does not negate a clinically suspicious finding and should not result in delay in biopsying a clinically suspicious abnormality. "Our facility is accredited by the [employer] Mammography Program."
== END ==
LOC: MAMMO 15:55
PROVIDERS: ATTEND Internal Medicine
DX: R92.2 Inconclusive mammogram (principal); Z85.3 Personal history of malignant neoplasm of breast
CPT/HCPCS: 77066; G0279; 77062

== ENCOUNTER → 2021-12-08 | Outpatient (CLI) | payer BC ==
--- NOTE | 2021-12-08 13:09 | RAD ---
DATE: 12/08/2021 EXAM: MG DIGITAL BILAT DIAGNOSTIC MAMMO WITH RANDY HISTORY: Personal history of left breast cancer post lumpectomy and radiation in 10/25/2018. COMPARISON: 11/30/2020, 11/07/2019, 10/05/2018, 09/21/2017 This study was interpreted with the benefit of Computerized Aided Detection (CAD). Breast Density: HETERO The breast parenchyma is heterogenously dense, which could reduce sensitivity of mammography. Breast parenchyma level C. FINDINGS: Architectural distortion in the left breast from prior lumpectomy is stable. There are nilo gn-appearing coarse calcifications in the right breast. No suspicious mass, suspicious complications, or suspicious architectural distortion. IMPRESSION: Stable treatment changes of the left breast. No evidence of malignancy. BI-RADS CATEGORY: 2 BENIGN FINDING(S) RECOMMENDED FOLLOW-UP: 12M 12 MONTH FOLLOW-UP PQRS compliance statement: Patient information was entered into a reminder system with a target due d ate for the next mammogram. Mammography is a sensitive method for finding small breast cancers, but it does not detect them all a nd is not a substitute for careful clinical examination. A negative mammogram does not negate a clin ically suspicious finding and should not result in delay in biopsying a clinically suspicious abnorma lity. "Our facility is accredited by the [employer] Mammography Program." Electronically signed by: Desirae Duron MD (12/08/2021 1:07 PM) [id number]
== END ==
LOC: MAMMO 11:16
PROVIDERS: ATTEND Nurse Practitioner Family
DX: R92.1 Mammographic calcification found on diagnostic imaging of breast (principal); Z85.3 Personal history of malignant neoplasm of breast
CPT/HCPCS: 77066; G0279; 77062